=== PATIENT | male | born 1950 | race Caucasian/White ===

== ENCOUNTER 2016-04-04 06:49 | Outpatient (CLI) | payer OTHER ==
[2013-05-31 23:36] VITALS: BMI 24.1
[2016-04-04 07:23] LABS: CHOL/HDL RATIO 3.3 (4.5-6.4)
== END 2016-04-04 06:50 | disposition home or self-care (01) ==
LOC: LAB 06:49
PROVIDERS: ATTEND Internal Medicine Cardiovascular Disease
DX: I25.10 Atherosclerotic heart disease of native coronary artery without angina pectoris (principal); I10 Essential (primary) hypertension
CPT/HCPCS: 36415; 80061; 84450; 84460

== ENCOUNTER 2016-05-01 07:23 | Outpatient (CLI) ==
[2013-05-31 23:36] VITALS: BMI 24.1
== END 2016-05-01 07:24 | disposition home or self-care (01) ==
LOC: LAB 07:23
PROVIDERS: ATTEND Nurse Practitioner Family
DX: E10.42 Type 1 diabetes mellitus with diabetic polyneuropathy (principal)
CPT/HCPCS: 36415; 83036

== ENCOUNTER 2016-09-10 21:12 | Outpatient (CLI) ==
[2013-05-31 23:36] VITALS: BMI 24.1
== END 2016-09-10 21:13 | disposition home or self-care (01) ==
LOC: AMBL 21:12
PROVIDERS: ATTEND Internal Medicine Geriatric Medicine
DX: E11.649 Type 2 diabetes mellitus with hypoglycemia without coma (principal); Z79.4 Long term (current) use of insulin; R41.82 Altered mental status, unspecified; R40.2421 Glasgow coma scale score 9-12, in the field [EMT or ambulance]

== ENCOUNTER 2016-10-01 23:58 | Outpatient (CLI) | payer OTHER ==
[2013-05-31 23:36] VITALS: BMI 24.1
== END 2016-10-01 23:59 ==
LOC: AMBL 23:58
PROVIDERS: ATTEND Internal Medicine Geriatric Medicine
DX: R40.4 Transient alteration of awareness (principal); E16.2 Hypoglycemia, unspecified

== ENCOUNTER 2017-06-19 06:52 | Outpatient (CLI) | payer OTHER ==
[2013-05-31 23:36] VITALS: BMI 24.1
== END 2017-06-19 06:53 | disposition home or self-care (01) ==
LOC: LAB 06:52
PROVIDERS: ATTEND Nurse Practitioner
DX: E10.42 Type 1 diabetes mellitus with diabetic polyneuropathy (principal); I10 Essential (primary) hypertension; E78.2 Mixed hyperlipidemia; Z96.41 Presence of insulin pump (external) (internal)
CPT/HCPCS: 36415; 80053; 80061; 84439; 84443; 84480

== ENCOUNTER 2017-09-22 06:50 | Outpatient (CLI) ==
[2013-05-31 23:36] VITALS: BMI 24.1
== END 2017-09-22 06:51 | disposition home or self-care (01) ==
LOC: LAB 06:50
PROVIDERS: ATTEND Nurse Practitioner
DX: E10.42 Type 1 diabetes mellitus with diabetic polyneuropathy (principal)
CPT/HCPCS: 36415; 80053; 80061; 82607; 83036; 84439; 84443

== ENCOUNTER 2018-01-04 07:38 | Outpatient (CLI) | payer OTHER ==
[2013-05-31 23:36] VITALS: BMI 24.1
== END 2018-01-04 07:39 | disposition home or self-care (01) ==
LOC: LAB 07:38
PROVIDERS: ATTEND Internal Medicine Endocrinology, Diabetes & Metabolism
DX: E78.2 Mixed hyperlipidemia (principal); E10.42 Type 1 diabetes mellitus with diabetic polyneuropathy; E55.9 Vitamin D deficiency, unspecified
CPT/HCPCS: 36415; 80053; 80061; 82306; 82607; 83036; 84443

== ENCOUNTER 2018-04-05 06:38 | Outpatient (CLI) ==
[2013-05-31 23:36] VITALS: BMI 24.1
== END 2018-04-05 06:39 | disposition home or self-care (01) ==
LOC: LAB 06:38
PROVIDERS: ATTEND Physician Assistant Medical
DX: E10.42 Type 1 diabetes mellitus with diabetic polyneuropathy (principal); E78.2 Mixed hyperlipidemia
CPT/HCPCS: 36415; 80053; 80061; 82607; 83036

== ENCOUNTER 2018-07-03 06:40 | Outpatient (CLI) ==
[2013-05-31 23:36] VITALS: BMI 24.1
== END 2018-07-03 06:41 | disposition home or self-care (01) ==
LOC: LAB 06:40
PROVIDERS: ATTEND Physician Assistant Medical
DX: E10.42 Type 1 diabetes mellitus with diabetic polyneuropathy (principal); E78.2 Mixed hyperlipidemia
CPT/HCPCS: 36415; 80053; 80061; 82607; 83036

== ENCOUNTER 2018-08-04 12:05 | Outpatient (CLI) ==
[2013-05-31 23:36] VITALS: BMI 24.1
--- NOTE | 2018-08-09 12:21 | ECHOCOLOR ---
Date of Exam: 08/04/18 Ordering Physician: DEANDRE MACIAS APRN Reason for Echo: MITRAL REGURGITATION, CABG, SOB M-Mode Normal Adult Results LV Dimensions Normal Adult Results AoV Opening excursions >1.6 >1.6 LVEDD-base- 3.5-5.8 4.4 Ao root dimensions 2.0-3.7 3.0 LVESD-base- 3.1-4.6 L. Atrium dimensions 1.9-3.8 4.4 Post. Wall thickness 0.8-1.1 1.2 IV septum (thickness) 0.7-1.2 1.2 Post. Wall excursion 0.72-1.3 NORMAL Septal motion 0.7 Systolic motion R. Ventricular cavity 1.5-2.0 NORMAL LVEF 60% 64% Paradoxical septal wall motion NORMAL 2-D: 2-D M Mode Echocardiogram was performed using apical four chamber and left parasternal long and short axis views. Mitral, tricuspid and aortic valves appear to be normal. Contractility of the left ventricle seems to be normal, so is the cavity size. ENLARGED LEFT ATRIAL CAVITY. Aortic root appears to be normal. There is no pericardial effusion. There is no thrombus noted in the left ventricular or left aortic cavity. No mitral valve prolapse noted. DOPPLER WITH COLOR FLOW: MODERATE MITRAL REGURGITATION, MILD TO MODERATE TRICUSPID REGURGITATION AND PULMONARY REGURGITATION, NORMAL VALVULAR FLOW INDICES M-MODE: MV: NORMAL AV: NORMAL TV: NORMAL PV: CHAMBER SIZE: ENLARGED LEFT ATRIAL CAVITY WALL MOTION: NORMAL (MAYBE MILDLY HYPOKINETIC SEPTAL WALL) PERICARDIUM: NORMAL INTERPRETATION: 1. LEFT VENTRICULAR HYPERTROPHY WITH ENLARGED LEFT ATRIAL CAVITY 2. LEFT VENTRICULAR EJECTION FRACTION 64%--NORMAL 3. MODERATE MITRAL REGURGITATION 4. MILD TO MODERATE TRICUSPID REGURGITATION AND PULMONARY REGURGITATION MTDD
== END 2018-08-04 12:06 | disposition home or self-care (01) ==
LOC: CAR 12:05
PROVIDERS: ATTEND Clinical Nurse Specialist
DX: I34.0 Nonrheumatic mitral (valve) insufficiency (principal)

== ENCOUNTER 2018-08-05 09:33 | Emergency (ER) ==
[2018-08-05 09:40] VITALS: TEMP 97.1; BMI 2387.0
[2018-08-05] MEDS ORDERED: ANTIVERT PO STA (10:35)
--- NOTE | 2018-08-05 11:37 | CT ---
EXAM: CT BRAIN HISTORY: Dizziness TECHNIQUE: CT brain without intravenous contrast. 5-mm axial sections with Reformations. COMPARISON: 05/31/2013 FINDINGS: There is generalized atrophy. There is at least mild periventricular and deep white matter low atten uation which although nonspecific is suggestive of chronic microvascular ischemic change. These find ings are stable Brain otherwise is unremarkable without evidence of hemorrhage or large vessel distribution recent is chemic infarction. There is no suggestion of acute hydrocephalus or subdural fluid collection. No m ass or mass effect. Cranium has no acute finding. Mastoid processes are aerated. The visualized paranasal sinuses are clear. IMPRESSION: No acute intracranial process.
[2018-08-05 11:51] VITALS: BP 152/68
--- NOTE | 2018-08-05 11:58 | ED.PDOC ---
General ED Provider: Dr. SARA SANCHEZ Chief Complaint: Dizziness Stated Complaint: dizziness x 1 week postional no deficits no pain Time Seen by Physician: 09:45 Mode of Arrival: Walk-In Information Source: Patient Exam Limitations: No limitations Primary Care Provider: DENA DUONG Nursing and Triage Documentation Reviewed and Agree: Yes Does patient meet sepsis criteria?: No System Inflammatory Response Syndrome: Not Applicable Sepsis Protocol: For patient's 13 years and over: Temp is 96.8 and below OR 101 and greater Pulse >90 BPM Resp >20/minute Acutely Altered Mental Status Are patient's symptoms suggestive of a new infection, such as: -Pneumonia -Skin, Soft Tissue -Endocarditis -UTI -Bone, Joint Infection -Implantable Device -Acute Abdominal Infection -Wound Infection -Meningitis -Blood Stream Catheter Infection -Unknown Neurological Complaint Exam - Dizziness Complaint/Exam Last Known Well: 8 days ago Onset: Gradual Duration: see above Symptoms Are: Still present Timing: Intermittent Episodes Lasting: Minutes Initial Severity: Mild Current Severity: Mild Character: Reports: Dizzy Aggravating: Reports: Position change Alleviating: Reports: Rest Associated Signs and Symptoms: Denies: Nausea, Vomiting, Diaphoresis, Tinnitus, Chest pain, Short of air, Palpitations, Unsteady gait, GI blood loss, Visual changes, Decreased oral intake, Change in medication, Change in diet, OTC meds, Loss of balance Review of Systems - Review Of Systems Constitutional: Reports: No symptoms Eyes: Reports: No symptoms Ears, Nose, Mouth, Throat: Reports: No symptoms Respiratory: Reports: No symptoms Cardiac: Reports: No symptoms GI: Reports: No symptoms : Reports: No symptoms Musculoskeletal: Reports: No symptoms Skin: Reports: No symptoms Neurological: Reports: Other (DIZZY) Endocrine: Reports: No symptoms Hematologic/Lymphatic: Reports: No symptoms All Other Systems: Reviewed and Negative Past Medical History - Past Medical History Previously Healthy: Yes Endocrine: Reports: Dyslipidemia Cardiovascular: Reports: Hypertension Respiratory: Reports: None Hematological: Reports: None Gastrointestinal: Reports: None Genitourinary: Reports: None Neuro/Psych: Reports: None Musculoskeletal: Reports: None Cancer: Reports: None - Surgical History General Surgical History: Reports: None - Family History Family History: Reports: None - Social History Smoking Status: Never smoker Hx Substance Use: No Alcohol Screening: Occasionally Physical Exam - Physical Exam Appearance: Well-appearing, No pain distress, Well-nourished Eyes: MACIE, EOMI, Conjunctiva clear ENT: Ears normal, Nose normal, Oropharynx normal Respiratory: Airway patent, Breath sounds clear, Breath sounds equal, Respirations nonlabored Cardiovascular: RRR, Pulses normal, No rub, No murmur GI/: Soft, Nontender, No masses, Bowel sounds normal, No Organomegaly Musculoskeletal: Normal strength, ROM intact, No edema, No calf tenderness Skin: Warm, Dry, Normal color Neurological: Sensation intact, Motor intact, Reflexes intact, Cranial nerves intact, Alert, Oriented Psychiatric: Affect appropriate, Mood appropriate - NIH Stroke Scale 1a. Level of Consciousness: 0=Alert and keenly responsive 1b. Level of Consciousness Questions: 0=Answers correctly to two questions 2. Best Gaze: 0=Normal 3. Visual: 0=No visual loss 4. Facial Palsy: 0=Normal 5a. Motor Left Arm: 0=No drift,arm holds 90 degrees for 10 sec., leg 30 degrees for 5 sec. 5b. Motor Right Arm: 0=No drift,arm holds 90 degrees for 10 sec., leg 30 degrees for 5 sec. 6a. Motor Left Le=No drift,arm holds 90 degrees for 10 sec., leg 30 degrees for 5 sec. 6b. Motor Right Le=No drift,arm holds 90 degrees for 10 sec., leg 30 degrees for 5 sec. 7. Limb Ataxia: 0=Absent 8. Sensory: 0=Normal 9. Best Language: 0=No aphasia 10. Dysarthria: 0=Normal 11. Extincion and Inattention: 0=Normal Stroke Scale Total: 0 Interpretation - Radiology Interpretation Radiology Interpretation By: Radiologist Radiology Results: No acute changes Exam Interpreted: CT Scan Re-Evaluation - Re-Evaluation Time of Re-Evaluation: 11:58 Status: Improved Vital Signs Stable: Yes Pain Level: 0 not dizzy Appearance: NAD Lungs: Clear Skin: Warm and Dry Neuro: Alert and Oriented X3 CV: RRR Critical Care Note - Critical Care Note Total Time (mins): 0 Course - Course Hematology/Chemistry: 08/05/18 10:09 08/05/18 10:21 Orders, Labs, Meds: Lab Review 08/05/18 08/05/18 08/05/18 10:09 10:13 10:21 WBC 6.76 RBC 3.96 L Hgb 11.9 L Hct 35.9 L MCV 90.7 MCH 30.1 MCHC 33.1 RDW Coeff of [place] 14.4 Plt Count 243 Immature Gran % (Auto) 0.4 Neut % (Auto) 83.9 Lymph % (Auto) 9.2 L [place] % (Auto) 4.9 Eos % (Auto) 0.7 Baso % (Auto) 0.9 Immature Gran # (Auto) 0.0 Neut # (Auto) 5.7 Lymph # (Auto) 0.6 [place] # (Auto) 0.3 L Eos # (Auto) 0.1 Baso # (Auto) 0.1 Puncture Site Rrad O2 Saturation 95.0 ABG pH 7.383 ABG pCO2 38.2 ABG pO2 79.0 L ABG HCO3 22.8 ABG Total CO2 24 ABG Base Excess -2 Gio Test + FiO2 % 21.0 Sodium 138.7 Potassium 4.60 Chloride 102.1 Carbon Dioxide 27.3 Anion Gap 13.90 BUN 18.0 Creatinine 0.67 Estimated GFR (MDRD) 117.00 BUN/Creatinine Ratio 26.86 Glucose 271.0 H Calcium 9.12 Total Bilirubin 0.85 AST 40.3 ALT 18.7 Alkaline Phosphatase 123.3 H Total Creatine Kinase Troponin I Total Protein 6.70 Albumin 4.19 Globulin 2.51 Albumin/Globulin Ratio 1.66 Urine Color Urine Clarity Urine pH Ur Specific [place] Urine Protein Urine Glucose (UA) Urine Ketones Urine Blood Urine Nitrite Urine Bilirubin Urine Urobilinogen Ur Leukocyte Esterase 08/05/18 08/05/18 10:21 11:10 WBC RBC Hgb Hct MCV MCH MCHC RDW Coeff of [place] Plt Count Immature Gran % (Auto) Neut % (Auto) Lymph % (Auto) [place] % (Auto) Eos % (Auto) Baso % (Auto) Immature Gran # (Auto) Neut # (Auto) Lymph # (Auto) [place] # (Auto) Eos # (Auto) Baso # (Auto) Puncture Site O2 Saturation ABG pH ABG pCO2 ABG pO2 ABG HCO3 ABG Total CO2 ABG Base Excess Gio Test FiO2 % Sodium Potassium Chloride Carbon Dioxide Anion Gap BUN Creatinine Estimated GFR (MDRD) BUN/Creatinine Ratio Glucose Calcium Total Bilirubin AST ALT Alkaline Phosphatase Total Creatine Kinase 46.6 L Troponin I < 0.012 Total Protein Albumin Globulin Albumin/Globulin Ratio Urine Color Yellow Urine Clarity Clear Urine pH 6.0 Ur Specific [place] 1.015 Urine Protein Negative Urine Glucose (UA) 2+ Urine Ketones Trace Urine Blood Negative Urine Nitrite Negative Urine Bilirubin Negative Urine Urobilinogen 0.2 Ur Leukocyte Esterase Negative Orders Category Date Time Status ABG DRAW REQUEST Stat CARDIO 08/05/18 10:13 Completed EKG-(ED ONLY) Stat CARDIO 08/05/18 10:09 Completed ABG Stat LAB 08/05/18 10:13 Completed CBC W/ AUTO DIFF Stat LAB 08/05/18 10:09 Completed COMPREHENSIVE METABOLIC PANEL Stat LAB 08/05/18 10:21 Completed CREATINE KINASE Stat LAB 08/05/18 10:21 Completed TROPONIN I Stat LAB 08/05/18 10:21 Completed URINALYSIS C & S IF INDICATED Stat LAB 08/05/18 11:10 Completed Meclizine HCl [Antivert] MEDS 08/05/18 10:35 Discontinued 25 mg PO ONCE STA CT HEAD W/O CONTRAST Stat RADS 08/05/18 10:09 Taken Medications Discontinued Medications Generic Name Dose Route Start Last Admin Trade Name Freq PRN Reason Stop Dose Admin Meclizine HCl 25 mg 08/05/18 10:35 08/05/18 10:50 Antivert PO 08/05/18 10:36 25 mg ONCE STA Administration Vital Signs: Temp Pulse Resp BP Pulse Ox 08/05/18 11:50 152/68 H 08/05/18 09:34 97.1 F L 51 L 20 176/70 H 98 Departure - Departure Time of Disposition: 11:59 Disposition: HOME SELF-CARE Discharge Problem: Dizziness Anemia Qualifiers: Anemia type: unspecified type Qualified Code(s): D64.9 - Anemia, unspecified Instructions: Dizziness (ED), Lightheadedness (ED), Vertigo (DC) Condition: Good Pt referred to PMD for follow-up: Yes IPMP verified?: No Additional Instructions: Please call your Family Physician as soon as possible to schedule a follow-up appointment. your blood count is low . please discuss colonscopy with your MD Allergies/Adverse Reactions: Allergies No Known Allergies Allergy (Verified 08/05/18 09:38) Home Medications: Ambulatory Orders Atorvastatin Calcium [Lipitor] 10 mg PO BEDTIME 12/27/12 Nitroglycerin [Nitrostat] 0.4 mg SL Q5MIN X 3 DOSES PRN 12/27/12 Prasugrel HCl [Effient] 10 mg PO DAILY 10/21/13 Losartan Potassium [Cozaar] 50 mg PO BEDTIME 05/31/13 Nebivolol HCl [Bystolic] 10 mg PO DAILY 06/01/13
== END 2018-08-05 12:13 | disposition home or self-care (01) ==
LOC: ED 09:33
DX: R42 Dizziness and giddiness (principal); D64.9 Anemia, unspecified; E78.5 Hyperlipidemia, unspecified; I10 Essential (primary) hypertension; Z79.899 Other long term (current) drug therapy
CPT/HCPCS: 36415; 80053; 81001; 82550; 82803; 84484; 85025; 93005; 93010; 99283

== ENCOUNTER 2021-04-02 05:12 | Inpatient (IN) ==
[2021-04-02] MEDS ORDERED: DEXTROSE 50%-WATER ABBOJECT IVP ONE (05:20)
--- NOTE | 2021-04-02 05:24 | ED.PDOC ---
General <CHAITANYA CONTEH MD - Last Filed: 04/03/21 12:44> ED Provider: Dr. CHAITANYA CONTEH Chief Complaint: Hypoglycemia Stated Complaint: Insulin dependent diabetic, took his insulin last night, but did not eat. noticed that around 4 this morning she could not arouse him, snoring, family did not check blood sugar, instead loaded him in car and brought him here. He was here 2 days ago for altered mental status, work-up unremarkable, transferred to [facility], [place] for possible stroke, recovered, unknown findings, reports that after the fact she discovered that he had been taking her percocet and valium type medicines. No alcohol reported. When arrived here to ED, nurse found his BS to be 51. Tx initiated. Time Seen by Provider: 04/02/21 05:23 Mode of Arrival: Wheelchair Information Source: Family Exam Limitations: Clinical condition and Altered mental status Primary Care Provider: DENA DUONG Nursing and Triage Documentation Reviewed and Agree: Yes Does patient meet sepsis criteria?: No System Inflammatory Response Syndrome: Not Applicable Sepsis Protocol: For patient's 13 years and over: Temp is 96.8 and below OR 101 and greater Pulse >90 BPM Resp >20/minute Acutely Altered Mental Status Are patient's symptoms suggestive of a new infection, such as: -Pneumonia -Skin, Soft Tissue -Endocarditis -UTI -Bone, Joint Infection -Implantable Device -Acute Abdominal Infection -Wound Infection -Meningitis -Blood Stream Catheter Infection -Unknown Neurological Complaint Exam <CHAITANYA CONTEH MD - Last Filed: 04/03/21 12:44> Altered Mental Status Complaint/Exam Current Mental Status: Unresponsiveness Last Known Well: last evening at bedtime Onset: Gradual (unknown for certain) Duration: unknown exactly Symptoms Are: Still present Timing: Constant Initial Severity: Severe Current Severity: Severe Eye Deviation Present: Yes (nystagmus noted) Character: Reports Responsiveness (decreased) Aggravating: Reports Medication change (insulin taken without eating) Alleviating: Reports None Associated Signs and Symptoms: Denies Dizziness, Weakness, Headache, Fever, Illness, Nuchal rigidity, Seizure, Nausea, Vomiting, Recently depressed or Trauma Related History: Reports Similar episode (see recent ETR) Cardiac Risk Factors: Reports Hypertension and CAD CVA Risk Factors: Reports Diabetes, Hypertension and CAD Related Surgical History: Reports None Carotid Bruit Present: No Glascow Coma Scale (see protocol): 9 Nystagmus Present: Yes Gag Reflex Present: No Meningeal Signs Positive: No Focal Weakness: Present None (cannot assess due to reduced LOC) Focal Sensory Loss: Present None (cannot assess) Gait: Unable Babinski Sign: Positive Right and Positive Left Signs of Injury: Present Normal findings Thrombolytics Considered: No Differential Diagnoses: Hypoxia, Intoxication, Intracranial Bleed, Metabolic Disorder, Hypoglycemia, Overdose, Medication reaction and CVA Review of Systems <CHAITANYA CONTEH MD - Last Filed: 04/03/21 12:44> Review Of Systems Constitutional: Reports Other (cannot determine due to being obtunded) All Other Systems: Other (cannot be obtained due to reduced LOC) PFSH <CHAITANYA CONTEH MD - Last Filed: 04/03/21 12:44> Medical History (Updated 04/03/21 @ 20:58 by CHAITANYA CONTEH MD) Diabetes HTN (hypertension) Hyperlipidemia Rotator cuff arthropathy Social History Smoking and tobacco status: Never smoker Surgical History (Updated 04/02/21 @ 15:50 by AKIN TALLEY RN) H/O heart artery stent History of penile implant History of quadruple bypass Physical Exam <CHAITANYA CONTEH MD - Last Filed: 04/03/21 12:44> Physical Exam Appearance: Reports Thin Ill-appearing: Not Applicable Pain Distress: Not Applicable Eyes: Reports MACIE and Other (nystagmus type slow horizontal eye movements, no clear pattern) ENT: Reports Oropharynx normal Neck: Supple Respiratory: Reports Airway patent and Breath sounds clear Cardiovascular: Reports RRR and Pulses normal GI/: Reports Soft Musculoskeletal: Reports Not Examined Skin: Reports Warm and Dry Neurological: Reports Reflexes intact, Alert to pain (responds to pain by reaching to area of pain), Abnormal reflexes (Babinski positive) and Other (Positive Babinski test bilateral. No doll's eyes findings.) Psychiatric: Reports Not Examined <CHAITANYA CONTEH MD - Last Filed: 04/03/21 12:44> NIH Stroke Scale 1a. Level of Consciousness: 2=Not alert, requires repeated stimulation or painful stimulation 1b. Level of Consciousness Questions: 2=Answers correctly to neither 5a. Motor Left Arm: 4=No movement 5b. Motor Right Arm: 4=No movement 6a. Motor Left Le=No movement 6b. Motor Right Le=No movement 7. Limb Ataxia: 2=Present in two or more limbs 9. Best Language: 3=Mute, only sounds 10. Dysarthria: 2=Severe, cannot be understood 11. Extincion and Inattention: 2=Profound semi-inattention Stroke Scale Total: 29 <DENA CASANOVA DO - Last Filed: 04/04/21 07:25> NIH Stroke Scale Stroke Scale Total: 29 Interpretation <CHAITANYA CONTEH MD - Last Filed: 04/03/21 12:44> EKG Interpretation Time of EKG #1: 05:23 Rate: Normal Rhythm: Sinus Ectopy: None Lawn: NL ST Segment: Other (NSSTW changes) Interpretation: LVH, prolonged QT (442) <DENA CASANOVA DO - Last Filed: 04/04/21 07:25> Radiology Interpretation Exam Interpreted: Other (MRI Brain:No acute intracranial abnormality. Mild chronic microvascular ischemic white matter changes. Chronic lacunar infarct in the left lentiform nucleus and small chronic right cerebellar infarct.) Physician Notification <CHAITANYA CONTEH MD - Last Filed: 04/03/21 12:44> Case Discussed Physician Notified: Dr. Casanova turn over ED care. Will need glucose monitored, narcan/romaz. Time of Notification: 07:00 <DENA CASANOVA DO - Last Filed: 04/04/21 07:25> Case Discussed Physician Notified: Assumed mgt and care from Dr Conteh Time of Notification: 07:00 Comments: Patient wiht Altered LOC/Despite initial tx remains Somolent, Mininmal response to tactile stimulus; Urine Drug Screen Positive for Opiates and benzodiazes Hx similar scenario last ER visit and later revealed by family of suspicion patient had been using meds at home Critical Care Note <CHAITANYA CONTEH MD - Last Filed: 04/03/21 12:44> Critical Care Note Total Critical Care Time (mins): 60 Comments: Tx for severe hypoglycemia, altered mental status, test review, old record review. Course <CHAITANYA CONTEH MD - Last Filed: 04/03/21 12:44> Course Hematology/Chemistry: 04/04/21 04:50 04/04/21 04:50 Orders, Labs, Meds: Lab Review 04/02/21 04/02/21 04/02/21 05:45 05:45 05:50 WBC RBC Hgb Hct MCV MCH MCHC RDW Coeff of Bandar Plt Count Immature Gran % (Auto) Neut % (Auto) Lymph % (Auto) Harper % (Auto) Eos % (Auto) Baso % (Auto) Neut # (Auto) Lymph # (Auto) Harper # (Auto) Eos # (Auto) Baso # (Auto) Immature Gran # (Auto) Puncture Site Base Excess O2 Saturation ABG pH ABG pCO2 ABG pO2 ABG HCO3 ABG Total CO2 Gio Test Hemoglobin Oxyhemoglobin Carboxyhemoglobin Total Hemoglobin O2 Delivery Device Oxygen Liter Flow Sodium Potassium Chloride Carbon Dioxide Anion Gap BUN Creatinine Estimated GFR (MDRD) BUN/Creatinine Ratio Glucose Lactic Acid Calcium Total Bilirubin AST ALT Alkaline Phosphatase Troponin I Total Protein Albumin Globulin Albumin/Globulin Ratio Procalcitonin 0.25 H Urine Color Yellow Urine Clarity Clear Urine pH 6.5 Ur Specific [place] 1.020 Urine Protein Negative Urine Glucose (UA) 2+ H Urine Ketones Negative Urine Blood Negative Urine Nitrite Negative Urine Bilirubin Negative Urine Urobilinogen 0.2 Ur Leukocyte Esterase Negative Urine Opiates Screen Negative Ur Oxycodone Screen Positive H Urine Methadone Screen Negative Ur Propoxyphene Screen Negative Ur Barbiturates Screen Negative U Tricyclic Antidepress Negative Ur Phencyclidine Scrn Negative Ur Amphetamine Screen Negative U Methamphetamines Scrn Negative U Benzodiazepines Scrn Positive H Urine Cocaine Screen Negative U Cannabinoids Screen Negative SARS CoV-2 RNA Rapid KARRIE 04/02/21 04/02/21 04/02/21 05:53 05:53 05:55 WBC 17.81 H D RBC 3.64 L Hgb 12.0 L Hct 34.8 L MCV 95.6 H MCH 33.0 H MCHC 34.5 RDW Coeff of Bandar 13.5 Plt Count 251 Immature Gran % (Auto) 1.0 Neut % (Auto) 87.8 H Lymph % (Auto) 4.5 L Harper % (Auto) 6.5 Eos % (Auto) 0.0 Baso % (Auto) 0.2 Neut # (Auto) 15.6 H Lymph # (Auto) 0.8 Harper # (Auto) 1.2 Eos # (Auto) 0.0 Baso # (Auto) 0.0 Immature Gran # (Auto) 0.2 Puncture Site Base Excess O2 Saturation ABG pH ABG pCO2 ABG pO2 ABG HCO3 ABG Total CO2 Gio Test Hemoglobin Oxyhemoglobin Carboxyhemoglobin Total Hemoglobin O2 Delivery Device Oxygen Liter Flow Sodium 140.3 Potassium 3.25 L Chloride 107.0 Carbon Dioxide 26.9 Anion Gap 9.65 BUN 31.2 H Creatinine 0.68 Estimated GFR (MDRD) 115.00 BUN/Creatinine Ratio 45.88 Glucose 166.8 H Lactic Acid Calcium 8.75 Total Bilirubin 0.84 AST 56.1 ALT 84.1 H Alkaline Phosphatase 144.9 H D Troponin I 0.372 H Total Protein 5.98 L Albumin 3.58 Globulin 2.40 Albumin/Globulin Ratio 1.49 Procalcitonin Urine Color Urine Clarity Urine pH Ur Specific [place] Urine Protein Urine Glucose (UA) Urine Ketones Urine Blood Urine Nitrite Urine Bilirubin Urine Urobilinogen Ur Leukocyte Esterase Urine Opiates Screen Ur Oxycodone Screen Urine Methadone Screen Ur Propoxyphene Screen Ur Barbiturates Screen U Tricyclic Antidepress Ur Phencyclidine Scrn Ur Amphetamine Screen U Methamphetamines Scrn U Benzodiazepines Scrn Urine Cocaine Screen U Cannabinoids Screen SARS CoV-2 RNA Rapid KARRIE 04/02/21 04/02/21 04/02/21 07:25 08:22 09:32 WBC RBC Hgb Hct MCV MCH MCHC RDW Coeff of Bandar Plt Count Immature Gran % (Auto) Neut % (Auto) Lymph % (Auto) Harper % (Auto) Eos % (Auto) Baso % (Auto) Neut # (Auto) Lymph # (Auto) Harper # (Auto) Eos # (Auto) Baso # (Auto) Immature Gran # (Auto) Puncture Site Rrad Base Excess 2.7 O2 Saturation 97.0 ABG pH 7.41 ABG pCO2 43.0 ABG pO2 90.0 ABG HCO3 27.3 ABG Total CO2 28.6 H Gio Test Pos Hemoglobin 1.0 Oxyhemoglobin 95.4 Carboxyhemoglobin 1.2 Total Hemoglobin 11.8 O2 Delivery Device Cannula Oxygen Liter Flow 2.00 Sodium Potassium Chloride Carbon Dioxide Anion Gap BUN Creatinine Estimated GFR (MDRD) BUN/Creatinine Ratio Glucose Lactic Acid 3.05 H Calcium Total Bilirubin AST ALT Alkaline Phosphatase Troponin I Total Protein Albumin Globulin Albumin/Globulin Ratio Procalcitonin Urine Color Urine Clarity Urine pH Ur Specific [place] Urine Protein Urine Glucose (UA) Urine Ketones Urine Blood Urine Nitrite Urine Bilirubin Urine Urobilinogen Ur Leukocyte Esterase Urine Opiates Screen Ur Oxycodone Screen Urine Methadone Screen Ur Propoxyphene Screen Ur Barbiturates Screen U Tricyclic Antidepress Ur Phencyclidine Scrn Ur Amphetamine Screen U Methamphetamines Scrn U Benzodiazepines Scrn Urine Cocaine Screen U Cannabinoids Screen SARS CoV-2 RNA Rapid KARRIE Negative Orders Category Date Time Status ADMIT PATIENT INPATIENT .TO [facility] (MONITORED BED) ADMISSION 04/02/21 13:51 Active ABG DRAW REQUEST Stat CARDIO 04/02/21 09:25 Completed EKG-(ED ONLY) Stat CARDIO 04/02/21 05:36 Completed TELEMETRY MONITORING TELE CARE 04/02/21 13:53 Active ABG COOX Stat LAB 04/02/21 09:32 Completed BLOOD CULTURE (ED ONLY) Stat LAB 04/02/21 08:22 Results CBC W/ AUTO DIFF Stat LAB 04/02/21 05:53 Completed COMPREHENSIVE METABOLIC PANEL Stat LAB 04/02/21 05:53 Completed DRUG SCREEN, URINE, RAPID Stat LAB 04/02/21 05:45 Completed LACTIC ACID Stat LAB 04/02/21 08:22 Completed PROCALCITONIN Stat LAB 04/02/21 05:50 Completed URINALYSIS C & S IF INDICATED Stat LAB 04/02/21 05:45 Completed Ceftriaxone/D5w 1 gm Premix [Rocephin 1 gm/50 ml D5w] MEDS 04/02/21 08:05 Discontinued 1 gm in 50 ml IV ONCE Dextrose 5 %-Water [Dextrose 5%-Water IV Soln] 500 ml MEDS 04/02/21 06:02 Discontinued IV BOLUS Dextrose 50 % in Water [Dextrose 50%-Water Abboject] MEDS 04/02/21 05:20 Discontinued 50 ml IVP ONCE ONE Dextrose 50 % in Water [Dextrose 50%-Water Abboject] MEDS 04/02/21 07:41 Discontinued 50 ml IVP ONCE STA Flumazenil [Romazicon] MEDS 04/02/21 07:30 Discontinued 0.2 mg IVP ONCE ONE Naloxone HCl [Narcan] MEDS 04/02/21 07:08 Discontinued 0.4 mg .ROUTE .STK-MED ONE Naloxone HCl [Narcan] MEDS 04/02/21 07:11 Discontinued 0.4 mg IVP ONCE STA Piperacillin Sodium/Tazobactam [Zosyn 3.375 gm] 3.375 MEDS 04/02/21 13:50 Discontinued gm 0.9 % Sodium Chloride [Sodium Chloride] 50 ml IV ONCE Vitamin B-1 Inj [Thiamine] 100 mg MEDS 04/02/21 14:10 Discontinued 0.9 % Sodium Chloride [Sodium Chloride] [address] ABDOMEN/PELVIS WO CONTRAST Stat RADS 04/02/21 06:[address] CHEST W/O CONTRAST Stat RADS 04/02/21 07:[address] HEAD W/O CONTRAST Stat RADS 04/02/21 06:38 Completed MRI BRAIN W/O CONTRAST Stat RADS 04/02/21 09:56 Completed Medications Generic Name Dose Route Start Last Admin Trade Name Freq PRN Reason Stop Dose Admin Acetaminophen 650 mg 04/02/21 15:21 Acetaminophen 325 Mg Tablet PO Q4H PRN Temp >101 Albuterol/Ipratropium 3 ml 04/02/21 18:00 04/04/21 05:21 Ipratropium/Albuterol Vial.Neb NEB 3 ml RTQ6H AFSHAN Administration Enoxaparin Sodium 70 mg 04/03/21 09:00 04/03/21 20:44 Enoxaparin Sodium 100 Mg/Ml Syr SUBCUT 70 mg Q12HR AFSHAN Administration CEFTRIAXONE/D5W 1 GM PREMIX 1 gm in 50 mls @ 75 mls/hr 04/03/21 21:00 04/03/21 20:44 Rocephin 1 Gm/50 Ml D5w IV 04/05/21 20:59 75 mls/hr BEDTIME AFSHAN Administration Potassium Chloride/Sodium Chloride 1,000 mls @ 100 mls/hr 04/03/21 10:44 04/04/21 01:29 Sodium Chloride 0.9%-Kcl 20 Meq IV 100 mls/hr .Q10H AFSHAN Administration Insulin Human Regular 0 unit 04/02/21 20:43 04/04/21 06:48 Insulin Regular, Human 100 Unit/Ml (3ml) Vial SUBCUT 8 unit PRN PRN Administration Hyperglycemia Protocol Labetalol HCl 20 mg 04/03/21 10:45 Labetalol Hcl 20 Mg/4 Ml Disp.Syrin IVP Q2H PRN SBP GREATER THAN 180 Pantoprazole Sodium 40 mg 04/04/21 09:00 Pantoprazole Sodium 40 Mg Vial IVP DAILY AFSHAN Discontinued Medications Generic Name Dose Route Start Last Admin Trade Name Freq PRN Reason Stop Dose Admin Dextrose 50 ml 04/02/21 05:20 04/02/21 05:21 Dextrose 50 % In Water 50 Ml Disp.Syrin IVP 04/02/21 05:21 50 ml ONCE ONE Administration Dextrose 50 ml 04/02/21 07:41 04/02/21 07:43 Dextrose 50 % In Water 50 Ml Disp.Syrin IVP 04/02/21 07:42 50 ml ONCE STA Administration Flumazenil 0.2 mg 04/02/21 07:30 04/02/21 07:37 Flumazenil 0.1 Mg/1 Ml Mdv IVP 04/02/21 07:31 0.2 mg ONCE ONE Administration Dextrose 500 mls @ 500 mls/hr 04/02/21 06:02 04/02/21 06:03 Dextrose 5%-Water Iv Soln IV 04/02/21 07:01 500 mls/hr BOLUS STA Administration CEFTRIAXONE/D5W 1 GM PREMIX 1 gm in 50 mls @ 75 mls/hr 04/02/21 08:05 04/02/21 09:04 Rocephin 1 Gm/50 Ml D5w IV 04/02/21 08:44 75 mls/hr ONCE STA Administration Piperacillin Sod/Tazobactam 50 mls @ 50 mls/hr 04/02/21 13:50 04/02/21 14:03 Sod 3.375 gm/ Sodium Chloride IV 04/02/21 14:49 50 mls/hr ONCE STA Administration Thiamine HCl 100 mg/ Sodium 51 mls @ 100 mls/hr 04/02/21 14:10 04/02/21 14:45 Chloride IV 04/02/21 14:40 100 mls/hr ONCE STA Administration Dextrose/Sodium Chloride 1,000 mls @ 125 mls/hr 04/02/21 10:30 04/03/21 02:32 Dextrose 5%-1/2ns Iv Solution IV Not Given .Q8H AFSHAN Potassium Chloride/Dextrose/Sod Cl 1,000 mls @ 75 mls/hr 04/02/21 15:30 04/03/21 07:27 D5%-Ns-Kcl 20 Meq/L Iv Karen IV Not Given .[id number] AFSHAN CEFTRIAXONE/D5W 1 GM PREMIX 1 gm in 50 mls @ 75 mls/hr 04/02/21 21:00 04/02/21 21:03 Rocephin 1 Gm/50 Ml D5w IV 04/09/21 20:59 75 mls/hr DAILY AFSHAN Administration Potassium Chloride/Sodium Chloride 1,000 mls @ 150 mls/hr 04/02/21 22:00 04/03/21 05:38 Sodium Chloride 0.9%-Kcl 20 Meq IV 150 mls/hr .Q6H40M AFSHAN Administration Naloxone HCl 0.4 mg 04/02/21 07:11 04/02/21 07:12 Naloxone Hcl 0.4 Mg/Ml Vial IVP 04/02/21 07:12 0.4 mg ONCE STA Administration Vital Signs: Temp Pulse Resp BP Pulse Ox 04/02/21 06:15 92 H 22 154/61 H 98 04/02/21 05:40 82 18 132/66 98 04/02/21 05:13 96.3 F L 59 L 13 136/62 98 <DENA CASANOVA, DO - Last Filed: 04/04/21 07:25> Course Orders, Labs, Meds: Lab Review 04/02/21 04/02/21 04/02/21 05:45 05:45 05:50 WBC RBC Hgb Hct MCV MCH MCHC RDW Coeff of Bandar Plt Count Immature Gran % (Auto) Neut % (Auto) Lymph % (Auto) Harper % (Auto) Eos % (Auto) Baso % (Auto) Neut # (Auto) Lymph # (Auto) Harper # (Auto) Eos # (Auto) Baso # (Auto) Immature Gran # (Auto) Puncture Site Base Excess O2 Saturation ABG pH ABG pCO2 ABG pO2 ABG HCO3 ABG Total CO2 Gio Test Hemoglobin Oxyhemoglobin Carboxyhemoglobin Total Hemoglobin O2 Delivery Device Oxygen Liter Flow Sodium Potassium Chloride Carbon Dioxide Anion Gap BUN Creatinine Estimated GFR (MDRD) BUN/Creatinine Ratio Glucose Lactic Acid Calcium Total Bilirubin AST ALT Alkaline Phosphatase Troponin I Total Protein Albumin Globulin Albumin/Globulin Ratio Procalcitonin 0.25 H Urine Color Yellow Urine Clarity Clear Urine pH 6.5 Ur Specific [place] 1.020 Urine Protein Negative Urine Glucose (UA) 2+ H Urine Ketones Negative Urine Blood Negative Urine Nitrite Negative Urine Bilirubin Negative Urine Urobilinogen 0.2 Ur Leukocyte Esterase Negative Urine Opiates Screen Negative Ur Oxycodone Screen Positive H Urine Methadone Screen Negative Ur Propoxyphene Screen Negative Ur Barbiturates Screen Negative U Tricyclic Antidepress Negative Ur Phencyclidine Scrn Negative Ur Amphetamine Screen Negative U Methamphetamines Scrn Negative U Benzodiazepines Scrn Positive H Urine Cocaine Screen Negative U Cannabinoids Screen Negative SARS CoV-2 RNA Rapid KARRIE 04/02/21 04/02/21 04/02/21 05:53 05:53 05:55 WBC 17.81 H D RBC 3.64 L Hgb 12.0 L Hct 34.8 L MCV 95.6 H MCH 33.0 H MCHC 34.5 RDW Coeff of [place]ar 13.5 Plt Count 251 Immature Gran % (Auto) 1.0 Neut % (Auto) 87.8 H Lymph % (Auto) 4.5 L Harper % (Auto) 6.5 Eos % (Auto) 0.0 Baso % (Auto) 0.2 Neut # (Auto) 15.6 H Lymph # (Auto) 0.8 Harper # (Auto) 1.2 Eos # (Auto) 0.0 Baso # (Auto) 0.0 Immature Gran # (Auto) 0.2 Puncture Site Base Excess O2 Saturation ABG pH ABG pCO2 ABG pO2 ABG HCO3 ABG Total CO2 Gio Test Hemoglobin Oxyhemoglobin Carboxyhemoglobin Total Hemoglobin O2 Delivery Device Oxygen Liter Flow Sodium 140.3 Potassium 3.25 L Chloride 107.0 Carbon Dioxide 26.9 Anion Gap 9.65 BUN 31.2 H Creatinine 0.68 Estimated GFR (MDRD) 115.00 BUN/Creatinine Ratio 45.88 Glucose 166.8 H Lactic Acid Calcium 8.75 Total Bilirubin 0.84 AST 56.1 ALT 84.1 H Alkaline Phosphatase 144.9 H D Troponin I 0.372 H Total Protein 5.98 L Albumin 3.58 Globulin 2.40 Albumin/Globulin Ratio 1.49 Procalcitonin Urine Color Urine Clarity Urine pH Ur Specific [place] Urine Protein Urine Glucose (UA) Urine Ketones Urine Blood Urine Nitrite Urine Bilirubin Urine Urobilinogen Ur Leukocyte Esterase Urine Opiates Screen Ur Oxycodone Screen Urine Methadone Screen Ur Propoxyphene Screen Ur Barbiturates Screen U Tricyclic Antidepress Ur Phencyclidine Scrn Ur Amphetamine Screen U Methamphetamines Scrn U Benzodiazepines Scrn Urine Cocaine Screen U Cannabinoids Screen SARS CoV-2 RNA Rapid KARRIE 04/02/21 04/02/21 04/02/21 07:25 08:22 09:32 WBC RBC Hgb Hct MCV MCH MCHC RDW Coeff of [place] Plt Count Immature Gran % (Auto) Neut % (Auto) Lymph % (Auto) Harper % (Auto) Eos % (Auto) Baso % (Auto) Neut # (Auto) Lymph # (Auto) Harper # (Auto) Eos # (Auto) Baso # (Auto) Immature Gran # (Auto) Puncture Site Rrad Base Excess 2.7 O2 Saturation 97.0 ABG pH 7.41 ABG pCO2 43.0 ABG pO2 90.0 ABG HCO3 27.3 ABG Total CO2 28.6 H Gio Test Pos Hemoglobin 1.0 Oxyhemoglobin 95.4 Carboxyhemoglobin 1.2 Total Hemoglobin 11.8 O2 Delivery Device Cannula Oxygen Liter Flow 2.00 Sodium Potassium Chloride Carbon Dioxide Anion Gap BUN Creatinine Estimated GFR (MDRD) BUN/Creatinine Ratio Glucose Lactic Acid 3.05 H Calcium Total Bilirubin AST ALT Alkaline Phosphatase Troponin I Total Protein Albumin Globulin Albumin/Globulin Ratio Procalcitonin Urine Color Urine Clarity Urine pH Ur Specific [place] Urine Protein Urine Glucose (UA) Urine Ketones Urine Blood Urine Nitrite Urine Bilirubin Urine Urobilinogen Ur Leukocyte Esterase Urine Opiates Screen Ur Oxycodone Screen Urine Methadone Screen Ur Propoxyphene Screen Ur Barbiturates Screen U Tricyclic Antidepress Ur Phencyclidine Scrn Ur Amphetamine Screen U Methamphetamines Scrn U Benzodiazepines Scrn Urine Cocaine Screen U Cannabinoids Screen SARS CoV-2 RNA Rapid KARRIE Negative Orders Category Date Time Status ADMIT PATIENT INPATIENT .TO [facility] (MONITORED BED) ADMISSION 04/02/21 13:51 Active ABG DRAW REQUEST Stat CARDIO 04/02/21 09:25 Completed EKG-(ED ONLY) Stat CARDIO 04/02/21 05:36 Completed TELEMETRY MONITORING TELE CARE 04/02/21 13:53 Active ABG COOX Stat LAB 04/02/21 09:32 Completed BLOOD CULTURE (ED ONLY) Stat LAB 04/02/21 08:22 Results CBC W/ AUTO DIFF Stat LAB 04/02/21 05:53 Completed COMPREHENSIVE METABOLIC PANEL Stat LAB 04/02/21 05:53 Completed DRUG SCREEN, URINE, RAPID Stat LAB 04/02/21 05:45 Completed LACTIC ACID Stat LAB 04/02/21 08:22 Completed PROCALCITONIN Stat LAB 04/02/21 05:50 Completed URINALYSIS C & S IF INDICATED Stat LAB 04/02/21 05:45 Completed Ceftriaxone/D5w 1 gm Premix [Rocephin 1 gm/50 ml D5w] MEDS 04/02/21 08:05 Discontinued 1 gm in 50 ml IV ONCE Dextrose 5 %-Water [Dextrose 5%-Water IV Soln] 500 ml MEDS 04/02/21 06:02 Discontinued IV BOLUS Dextrose 50 % in Water [Dextrose 50%-Water Abboject] MEDS 04/02/21 05:20 Discontinued 50 ml IVP ONCE ONE Dextrose 50 % in Water [Dextrose 50%-Water Abboject] MEDS 04/02/21 07:41 Discontinued 50 ml IVP ONCE STA Flumazenil [Romazicon] MEDS 04/02/21 07:30 Discontinued 0.2 mg IVP ONCE ONE Naloxone HCl [Narcan] MEDS 04/02/21 07:08 Discontinued 0.4 mg .ROUTE .STK-MED ONE Naloxone HCl [Narcan] MEDS 04/02/21 07:11 Discontinued 0.4 mg IVP ONCE STA Piperacillin Sodium/Tazobactam [Zosyn 3.375 gm] 3.375 MEDS 04/02/21 13:50 Discontinued gm 0.9 % Sodium Chloride [Sodium Chloride] 50 ml IV ONCE Vitamin B-1 Inj [Thiamine] 100 mg MEDS 04/02/21 14:10 Discontinued 0.9 % Sodium Chloride [Sodium Chloride] [address] ABDOMEN/PELVIS WO CONTRAST Stat RADS 04/02/21 06:[address] CHEST W/O CONTRAST Stat RADS 04/02/21 07:[address] HEAD W/O CONTRAST Stat RADS 04/02/21 06:38 Completed MRI BRAIN W/O CONTRAST Stat RADS 04/02/21 09:56 Completed Medications Generic Name Dose Route Start Last Admin Trade Name Freq PRN Reason Stop Dose Admin Acetaminophen 650 mg 04/02/21 15:21 Acetaminophen 325 Mg Tablet PO Q4H PRN Temp >101 Albuterol/Ipratropium 3 ml 04/02/21 18:00 04/04/21 05:21 Ipratropium/Albuterol Vial.Neb NEB 3 ml RTQ6H AFSHAN Administration Enoxaparin Sodium 70 mg 04/03/21 09:00 04/03/21 20:44 Enoxaparin Sodium 100 Mg/Ml Syr SUBCUT 70 mg Q12HR AFSHAN Administration CEFTRIAXONE/D5W 1 GM PREMIX 1 gm in 50 mls @ 75 mls/hr 04/03/21 21:00 04/03/21 20:44 Rocephin 1 Gm/50 Ml D5w IV 04/05/21 20:59 75 mls/hr BEDTIME AFSHAN Administration Potassium Chloride/Sodium Chloride 1,000 mls @ 100 mls/hr 04/03/21 10:44 04/04/21 01:29 Sodium Chloride 0.9%-Kcl 20 Meq IV 100 mls/hr .Q10H AFSHAN Administration Insulin Human Regular 0 unit 04/02/21 20:43 04/04/21 06:48 Insulin Regular, Human 100 Unit/Ml (3ml) Vial SUBCUT 8 unit PRN PRN Administration Hyperglycemia Protocol Labetalol HCl 20 mg 04/03/21 10:45 Labetalol Hcl 20 Mg/4 Ml Disp.Syrin IVP Q2H PRN SBP GREATER THAN 180 Pantoprazole Sodium 40 mg 04/04/21 09:00 Pantoprazole Sodium 40 Mg Vial IVP DAILY AFSHAN Discontinued Medications Generic Name Dose Route Start Last Admin Trade Name Freq PRN Reason Stop Dose Admin Dextrose 50 ml 04/02/21 05:20 04/02/21 05:21 Dextrose 50 % In Water 50 Ml Disp.Syrin IVP 04/02/21 05:21 50 ml ONCE ONE Administration Dextrose 50 ml 04/02/21 07:41 04/02/21 07:43 Dextrose 50 % In Water 50 Ml Disp.Syrin IVP 04/02/21 07:42 50 ml ONCE STA Administration Flumazenil 0.2 mg 04/02/21 07:30 04/02/21 07:37 Flumazenil 0.1 Mg/1 Ml Mdv IVP 04/02/21 07:31 0.2 mg ONCE ONE Administration Dextrose 500 mls @ 500 mls/hr 04/02/21 06:02 04/02/21 06:03 Dextrose 5%-Water Iv Soln IV 04/02/21 07:01 500 mls/hr BOLUS STA Administration CEFTRIAXONE/D5W 1 GM PREMIX 1 gm in 50 mls @ 75 mls/hr 04/02/21 08:05 04/02/21 09:04 Rocephin 1 Gm/50 Ml D5w IV 04/02/21 08:44 75 mls/hr ONCE STA Administration Piperacillin Sod/Tazobactam 50 mls @ 50 mls/hr 04/02/21 13:50 04/02/21 14:03 Sod 3.375 gm/ Sodium Chloride IV 04/02/21 14:49 50 mls/hr ONCE STA Administration Thiamine HCl 100 mg/ Sodium 51 mls @ 100 mls/hr 04/02/21 14:10 04/02/21 14:45 Chloride IV 04/02/21 14:40 100 mls/hr ONCE STA Administration Dextrose/Sodium Chloride 1,000 mls @ 125 mls/hr 04/02/21 10:30 04/03/21 02:32 Dextrose 5%-1/2ns Iv Solution IV Not Given .Q8H AFSHAN Potassium Chloride/Dextrose/Sod Cl 1,000 mls @ 75 mls/hr 04/02/21 15:30 04/03/21 07:27 D5%-Ns-Kcl 20 Meq/L Iv Karen IV Not Given .[id number] AFSHAN CEFTRIAXONE/D5W 1 GM PREMIX 1 gm in 50 mls @ 75 mls/hr 04/02/21 21:00 04/02/21 21:03 Rocephin 1 Gm/50 Ml D5w IV 04/09/21 20:59 75 mls/hr DAILY AFSHAN Administration Potassium Chloride/Sodium Chloride 1,000 mls @ 150 mls/hr 04/02/21 22:00 04/03/21 05:38 Sodium Chloride 0.9%-Kcl 20 Meq IV 150 mls/hr .Q6H40M AFSHAN Administration Naloxone HCl 0.4 mg 04/02/21 07:11 04/02/21 07:12 Naloxone Hcl 0.4 Mg/Ml Vial IVP 04/02/21 07:12 0.4 mg ONCE STA Administration Vital Signs: Temp Pulse Resp BP Pulse Ox 04/02/21 06:15 92 H 22 154/61 H 98 04/02/21 05:40 82 18 132/66 98 04/02/21 05:13 96.3 F L 59 L 13 136/62 98 Discharge Plan Discharge Patient Disposition: ADMITTED INPATIENT Discharge Problem: Hypoglycemia, Acute alteration in mental status ED Provider: DEAN CASANOVA Condition: Serious <CHAITANYA CONTEH MD - Last Filed: 04/03/21 12:44> Physician Progress Note: [] <DENA CASANOVA, DO - Last Filed: 04/04/21 07:25> Physician Progress Note: No favorable response to IV Narcan or Romazecon again advised she awakened approximately 4:00 AM and heard loud sonorous breathing. NO RESPONSE TO SHAKING HIM. BS reading "low". She stated he was insistent on taking his INSULIN LAST Night at BED TIME Not sure of the amount. HS snack. He was adamant about keeping his Glucose levels controlled. Stated she Called her son in law who assisted with bringing him to ER Explained to her suspected nature of his current condition and preference of transfer to a facility for Neuro Service available however staff has called 19 different hospitals that all have lack of beds or staffing issues. PCP contacted by RN and advised to admit here at [facility] under Hospitalist service. Staff will check with hospitals again tomorrow. CODE STATUS- : CPR but not intubation or mechanical ventilation .
[2021-04-02 05:58] LABS: BASOPHILS % (AUTO) 0.2 % (0.0-3.0); HEMATOCRIT 34.8 % (42.0-52.0); IMMATURE GRANULOCYTE # (AUTO) 0.2 (0.0-1.0); LYMPHOCYTES # (AUTO) 0.8 K/uL (0.60-3.4); LYMPHOCYTES % (AUTO) 4.5 (10.0-50.0); MEAN CORPUSCULAR HGB CONC 34.5 (31.8-35.4); MEAN CORPUSCULAR VOLUME 95.6 fl (80.0-94.0); MONOCYTES # (AUTO) 1.2 K/uL (0.4-2.0); MONOCYTES % (AUTO) 6.5 (0-10); NEUTROPHILS # (AUTO) 15.6 K/ul (2.0-6.9); NEUTROPHILS % (AUTO) 87.8 % (42.2-75.2); PLATELET COUNT 251 10^3/uL (140-440); RDW COEFFICIENT OF VARIATION 13.5 % (11.6-14.8); RED BLOOD COUNT 3.64 10^6/ul (4.70-6.10); WHITE BLOOD COUNT 17.81 K/ul (4.2-10.2)
[2021-04-02 06:02] LABS: BILIRUBIN,URINE Negative (NEGATIVE); CLARITY,URINE Clear (CLEAR); COLOR,URINE Yellow (YELLOW); GLUCOSE, URINE (UA) 2+ (NEGATIVE); KETONES,URINE Negative (NEGATIVE); LEUKOCYTE ESTERASE ,URINE Negative (NEGATIVE); NITRITE,URINE Negative (NEGATIVE); PH,URINE 6.5 (5-9); PROTEIN,URINE Negative (NEGATIVE); URINE, BLOOD Negative (NEGATIVE); UROBILINOGEN,URINE 0.2 (0.2)
[2021-04-02] MEDS ORDERED: DEXTROSE 5%-WATER IV SOLN 500 ML IV STA (06:02)
[2021-04-02 06:12] LABS: ALANINE AMINOTRANSFERASE 84.1 U/L (0-50); ALBUMIN 3.58 g/dL (3.5-5.0); ALKALINE PHOSPHATASE 144.9 U/L (56-119); ASPARTATE AMINO TRANSFERASE 56.1 U/L (17-59); BILIRUBIN,TOTAL 0.84 mg/dL (0.2-1.3); BLOOD UREA NITROGEN 31.2 mg/dL (9-20); CALCIUM 8.75 mg/dL (8.4-10.2); CARBON DIOXIDE 26.9 mmol/L (22-30.0); CREATININE 0.68 mg/dL (0.60-1.10); GLUCOSE 166.8 mg/dL (74-106); POTASSIUM 3.25 mmol/L (3.5-5.1); SODIUM 140.3 mmol/L (134.5-145); TOTAL PROTEIN 5.98 g/dL (6.3-8.2)
[2021-04-02 06:12] LABS: AMPHETAMINE SCREEN,URINE NEGATIVE (NEGATIVE); BARBITURATE SCREEN,URINE NEGATIVE (NEGATIVE); BENZODIAZEPINES SCREEN,URINE POSITIVE (NEGATIVE); CANNABINOID SCREEN,URINE NEGATIVE (NEGATIVE); COCAIN SCREEN,URINE NEGATIVE (NEGATIVE); METHADONE URINE SCREEN NEGATIVE (NEGATIVE); METHAMPHETAMINES SCREEN,URINE NEGATIVE (NEGATIVE); OPIATE SCREEN,URINE NEGATIVE (NEGATIVE); OXYCODONE URINE SCREEN POSITIVE (NEGATIVE); PHENCYCLIDINE SCREEN,URINE NEGATIVE (NEGATIVE); PROPOXYPHENE URINE SCREEN NEGATIVE (NEGATIVE); TRICYCLIC ANTIDEPRESSANTS URIN NEGATIVE (NEGATIVE)
[2021-04-02] MEDS ORDERED: NARCAN ONE (07:08)
[2021-04-02] MEDS ORDERED: NARCAN IVP STA (07:11)
--- NOTE | 2021-04-02 07:17 | CT ---
EXAM: Brain CT without contrast 04/02/2021 INDICATION: Altered mental status. COMPARISON: CT head 03/31/2021. TECHNIQUE: Unenhanced CT of the head was performed from the skull base to the vertex. FINDINGS: No intracranial hemorrhage or extra-axial collection. No mass, mass effect or midline shift. The pruitt -white matter differentiation is preserved. Mild cerebral volume loss. There are patchy subcortical and periventricular white matter hypodensities, most commonly seen in chronic white matter microvascu lar ischemic changes. The ventricles are normal in size for age. The basal cisterns are patent. Th e visualized paranasal sinuses and mastoid air cells are clear. The orbits are unremarkable. The vi sualized osseous structures are unremarkable. IMPRESSION: - No acute intracranial hemorrhage or mass effect allowing for slight limitation by motion artifact. - Senescent changes. All CT scans are performed using dose optimization techniques as appropriate to the performed exam an d include at least one of the following: Automated exposure control, adjustment of the mA and/or kV according t o size, and the use of iterative reconstruction technique.
--- NOTE | 2021-04-02 07:19 | CT ---
EXAM: CT chest, abdomen pelvis without intravenous contrast 04/02/2021. Sagittal and coronal reform atted images obtained HISTORY: Shortness of a air. Unresponsive. Pain COMPARISON: 03/31/2021, 09/14/2020 FINDINGS: The heart size appears within normal limits. There is no pericardial effusion. Anatomic detail partially degraded by motion. Linear and ground-glass infiltrate within the dependent aspect of both lungs. This may represent atelectasis and/or pneumonitis. No pulmonary consolidation. No pleural effusion. No pneumothorax. Anatomic detail within the abdomen and pelvis is limited due to lack of intravenous contrast in [facility] with motion artifact. The liver shows no acute abnormality. Gallbladder not well visualized. The adrenal glands and kidneys show no acute abnormality. There is no hydronephrosis. The spleen and pancreas show no acute abnormality. There is no bowel obstruction. No evidence of ap pendicitis. Unremarkable urinary bladder. Penile implant in place. No free air. No free fluid. IMPRESSION: 1. Limited examination due to lack of intravenous contrast in combination with motion artifact. 2. Bilateral dependent atelectasis and/or pneumonitis. No pulmonary consolidation, effusion or pneu mothorax. 3. No urinary or bowel obstruction. 4. Gallbladder not well visualized. 5. No acute inflammatory process identified within the abdomen or pelvis. 6. Penile implant place. All CT scans are performed using dose optimization techniques as appropriate to the performed exam an d include at least one of the following: Automated exposure control, adjustment of the mA and/or kV according t o size, and the use of iterative reconstruction technique.
[2021-04-02] MEDS ORDERED: ROMAZICON IVP ONE (07:30)
[2021-04-02] MEDS ORDERED: DEXTROSE 50%-WATER ABBOJECT IVP STA (07:41)
[2021-04-02] MEDS ORDERED: ROCEPHIN 1 GM/50 ML D5W 1 GM/50 ML BAG IV STA (08:05)
[2021-04-02 09:40] LABS: ABG O2 HGB 95.4 % (95-100); ABG PH 7.41 (7.35-7.45); BEecf 2.7 (-2.0-3.0); COHb 1.2 (0.5-1.5); HCO3 27.3 (21-28); TCO2 28.6 (19-24); tHb 11.8 g/dl (11.7-17.4)
[2021-04-02] MEDS: DEXTROSE 5%-1/2NS IV SOLUTION 1,000 ML IV SCH (10:30)
--- NOTE | 2021-04-02 13:29 | MRI ---
EXAMINATION: MAGNETIC RESONANCE IMAGING (MRI) OF THE BRAIN WITHOUT CONTRAST HISTORY: Altered mental status. TECHNIQUE: Multiplanar multi-weighted MRI of the brain and brainstem was performed without intravenou s contrast using the general brain protocol. Contrast: None. COMPARISON: CT head 04/02/2021 FINDINGS: Parenchyma: No acute infarct. No acute hemorrhage. No mass effect or midline shift. Craniocervical junction is normal. Chronic Change: Scattered foci of T2/FLAIR hyperintensity in the periventricular and subcortical whit e matter, which are nonspecific, however likely represent mild chronic microvascular ischemia. No re mote microhemorrhages. Mild to moderate generalized brain volume loss. Small chronic right cerebell ar infarct and chronic lacunar infarct in the left lentiform nucleus. Ventricles/Extra-axial Spaces: Ventricles are normal in size and morphology for age. Normal basal ci sterns. Sella/Skull Base: Pituitary and sella are normal on noncontrast exam. Paranasal Sinuses/Mastoids: Mild mucosal thickening of the bilateral ethmoid and maxillary sinuses. Mastoid air cells are clear. Orbits: Normal. Vasculature: Normal flow voids in the carotid arteries and basilar artery. Calvarium/Scalp: Normal marrow. No soft tissue swelling. Limited Cervical Spine: Degenerative changes of the atlanto-axial joint. IMPRESSION: No acute intracranial abnormality. Mild chronic microvascular ischemic white matter changes. Chronic lacunar infarct in the left lentif orm nucleus and small chronic right cerebellar infarct.
[2021-04-02] MEDS ORDERED: ZOSYN 3.375 GM 3.375 GM in SODIUM CHLORIDE 50 ML IV STA (13:50)
[2021-04-02] MEDS ORDERED: THIAMINE 100 MG in SODIUM CHLORIDE 50 ML IV STA (14:10)
[2021-04-02] MEDS ORDERED: THIAMINE ONE (14:41)
[2021-04-02] MEDS ORDERED: TYLENOL PO PRN (15:21)
[2021-04-02 15:46] VITALS: BMI 21.0
[2021-04-02] MEDS ORDERED: ROCEPHIN 1 GM/50 ML D5W 1 GM/50 ML BAG IV SCH (21:00)
[2021-04-02] MEDS: HUMULIN R SUBCUT PRN (21:02)
[2021-04-02] MEDS: D5%-NS-KCL 20 MEQ/L IV SOL 1,000 ML IV SCH (21:08)
--- NOTE | 2021-04-02 21:14 | DI ---
EXAM: Chest, one-view HISTORY: Cough FINDINGS: Cardiac and mediastinal contours are normal. Pulmonary vasculature is normal. Lungs are clear. Prior mediastinotomy. No acute chest wall abnormality. IMPRESSION: No acute cardiopulmonary disease
[2021-04-02] MEDS: SODIUM CHLORIDE 0.9%-KCL 20 MEQ 1,000 ML IV SCH (22:20)
[2021-04-03] MEDS: DEXTROSE 5%-1/2NS IV SOLUTION 1,000 ML IV SCH (02:32)
[2021-04-03 05:38] LABS: BASOPHILS # (AUTO) 0.1 K/uL (0-0.2); BASOPHILS % (AUTO) 0.3 % (0.0-3.0); EOSINOPHILS # (AUTO) 0.1 K/ul (0.0-0.7); EOSINOPHILS % (AUTO) 0.6 % (0.0-7.0); HEMATOCRIT 36.9 % (42.0-52.0); IMMATURE GRANULOCYTE # (AUTO) 0.1 (0.0-1.0); IMMATURE GRANULOCYTE % (AUTO) 0.5 % (0.0-5.0); LYMPHOCYTES % (AUTO) 6.5 (10.0-50.0); MEAN CORPUSCULAR HGB CONC 35.2 (31.8-35.4); MEAN CORPUSCULAR VOLUME 93.7 fl (80.0-94.0); MONOCYTES # (AUTO) 1.2 K/uL (0.4-2.0); MONOCYTES % (AUTO) 7.6 (0-10); NEUTROPHILS # (AUTO) 12.8 K/ul (2.0-6.9); NEUTROPHILS % (AUTO) 84.5 % (42.2-75.2); PLATELET COUNT 233 10^3/uL (140-440); RDW COEFFICIENT OF VARIATION 13.8 % (11.6-14.8); RED BLOOD COUNT 3.94 10^6/ul (4.70-6.10); WHITE BLOOD COUNT 15.17 K/ul (4.2-10.2)
[2021-04-03] MEDS: SODIUM CHLORIDE 0.9%-KCL 20 MEQ 1,000 ML IV SCH ×2 (05:38→14:05)
[2021-04-03] MEDS: DUONEB NEB SCH ×5 (05:45→23:09)
[2021-04-03 05:49] LABS: PROTHROMBIN TIME 11.9 SEC (9.3-11.0)
[2021-04-03 05:52] LABS: ALANINE AMINOTRANSFERASE 79.5 U/L (0-50); ALBUMIN 3.66 g/dL (3.5-5.0); ALKALINE PHOSPHATASE 162.4 U/L (56-119); ASPARTATE AMINO TRANSFERASE 59.1 U/L (17-59); BILIRUBIN,TOTAL 1.32 mg/dL (0.2-1.3); BLOOD UREA NITROGEN 23.1 mg/dL (9-20); CALCIUM 9.22 mg/dL (8.4-10.2); CARBON DIOXIDE 23.9 mmol/L (22-30.0); CHLORIDE 109.7 mmol/L (98-107); CREATININE 0.59 mg/dL (0.60-1.10); GLUCOSE 320.2 mg/dL (74-106); POTASSIUM 4.69 mmol/L (3.5-5.1); SODIUM 138.2 mmol/L (134.5-145); TOTAL PROTEIN 6.32 g/dL (6.3-8.2)
[2021-04-03 06:02] LABS: TROPONIN I 0.46 ng/ml (0.0000-0.120)
[2021-04-03] MEDS: HUMULIN R SUBCUT PRN ×4 (06:18→20:45)
[2021-04-03] MEDS: D5%-NS-KCL 20 MEQ/L IV SOL 1,000 ML IV SCH (07:27)
[2021-04-03] MEDS: LOVENOX SUBCUT SCH ×2 (08:35→20:44)
[2021-04-03] MEDS ORDERED: TRANDATE IVP PRN (10:45)
[2021-04-03 17:27] LABS: AMPHETAMINE SCREEN,URINE NEGATIVE (NEGATIVE); BARBITURATE SCREEN,URINE NEGATIVE (NEGATIVE); BENZODIAZEPINES SCREEN,URINE NEGATIVE (NEGATIVE); CANNABINOID SCREEN,URINE NEGATIVE (NEGATIVE); COCAIN SCREEN,URINE NEGATIVE (NEGATIVE); METHADONE URINE SCREEN NEGATIVE (NEGATIVE); METHAMPHETAMINES SCREEN,URINE NEGATIVE (NEGATIVE); OPIATE SCREEN,URINE NEGATIVE (NEGATIVE); OXYCODONE URINE SCREEN NEGATIVE (NEGATIVE); PHENCYCLIDINE SCREEN,URINE NEGATIVE (NEGATIVE); PROPOXYPHENE URINE SCREEN NEGATIVE (NEGATIVE); TRICYCLIC ANTIDEPRESSANTS URIN NEGATIVE (NEGATIVE)
--- NOTE | 2021-04-03 19:44 | PCM.DC ---
Final Diagnosis: Medications at Discharge: Ambulatory Orders Medication Instructions Recorded nitroglycerin 0.4 mg sublingual 0.4 mg SUBLINGUAL Q5MIN X 3 DOSES 12/27/12 tablet (Nitrostat) PRN losartan 50 mg tablet 50 mg PO BID 05/31/13 aspirin 81 mg chewable tablet 81 mg PO DAILY 04/02/21 atorvastatin 80 mg tablet 80 mg PO BEDTIME 04/02/21 copper 2 mg tablet 2 mg PO BID 04/02/21 ferrous sulfate 325 mg (65 mg 325 mg PO TID 04/02/21 iron) tablet isosorbide mononitrate 60 mg 60 mg PO DAILY 04/02/21 tablet,extended release 24 hr naproxen sodium 220 mg capsule 440 mg PO BEDTIME 04/02/21 (Aleve) ranolazine 500 mg tablet,extended 500 mg PO BID 04/02/21 release,12 hr
--- NOTE | 2021-04-03 20:15 | PCM.PROG ---
Date Seen by Provider: 04/03/21 Time Seen by Provider: 12:00 Subjective: Not responding except somewhat to painful stimuli. HPI - admit through ER with the consequences of a profound and prolonged hypoglycemia episode at home. Objective: Vitals: T=99.8 F, P=117, R=22, QX=415/70, SPO2=98 HEENT: [Grossly WNL] Neck: [Neg change] Lungs: clear[] CVS: [RRR, no m] Abdomen: [soft] Extremities: [no edema] Neurological: [unresponsive , sonorous most of the time] Skin: [no acute change] Lab/Tests/Diagnostic Imaging: [] (1) Acute metabolic encephalopathy due to hypoglycemia: Status: Acute Code(s): G93.41 - Metabolic encephalopathy; E16.2 - Hypoglycemia, unspecified SNOMED Code(s): 46752261 Assessment: Very little change from when admitted. Basically comatose. Brain MRI unremarkable. Apparently the hypoglycemia the source of the comatose state, and not CVA. Family would like him transferred for neurology eval, as would the staff, but cannot find a bed at any hospital in this general area. Nutrition is going to be an issue eventually. Hyperal/TPN or feeding tube will need to be considered. Currently IVF only. Add stomach acid reducing med. For now, he is not a DNR, but a DNI. I advised family that the overall prognosis is poor. (2) Pneumonia: Status: Acute Code(s): J18.9 - Pneumonia, unspecified organism SNOMED Code(s): 613004430 Assessment: Very minor pneumonia, not seen on CXR , but at lung bases with abd/pel CT. WBC coming down. Sat. normal. On rocephin as monotherapy. (3) Elevated troponin: Status: Acute Code(s): R77.8 - Other specified abnormalities of plasma proteins SNOMED Code(s): 690707943 Assessment: Troponin did go up a bit, coming back down. Prior hospitalist advised me that there were no EKG changes. Monitor. On lovenox. (4) Diabetes mellitus, type II, insulin dependent: Status: Acute Code(s): E11.9 - Type 2 diabetes mellitus without complications; Z79.4 - terminal operator (current) use of insulin SNOMED Code(s): 016270643 Assessment: Using a sliding scale to control. Plan: 1. Metabolic encephalopathy - continue current management and search for a transfer site with a neurologist. 2. Pneumonia - minor, cont. rocephin. 3. Elevated troponin, mild, coming back down, monitor. 4. T2DM - control blood sugar.
[2021-04-03] MEDS: ROCEPHIN 1 GM/50 ML D5W 1 GM/50 ML BAG IV SCH (20:44)
[2021-04-04] MEDS: SODIUM CHLORIDE 0.9%-KCL 20 MEQ 1,000 ML IV SCH ×2 (01:29→11:28)
[2021-04-04] MEDS: DUONEB NEB SCH ×4 (05:21→23:10)
[2021-04-04 05:43] LABS: BASOPHILS % (AUTO) 0.3 % (0.0-3.0); HEMATOCRIT 36.5 % (42.0-52.0); HEMOGLOBIN 12.4 g/dl (14.0-18.0); IMMATURE GRANULOCYTE # (AUTO) 0.1 (0.0-1.0); IMMATURE GRANULOCYTE % (AUTO) 0.7 % (0.0-5.0); LYMPHOCYTES # (AUTO) 0.7 K/uL (0.60-3.4); LYMPHOCYTES % (AUTO) 5.9 (10.0-50.0); MEAN CORPUSCULAR HEMOGLOBIN 32.6 pg (27.0-31.0); MEAN CORPUSCULAR VOLUME 96.1 fl (80.0-94.0); MONOCYTES # (AUTO) 0.9 K/uL (0.4-2.0); MONOCYTES % (AUTO) 7.3 (0-10); NEUTROPHILS # (AUTO) 10.3 K/ul (2.0-6.9); NEUTROPHILS % (AUTO) 85.8 % (42.2-75.2); PLATELET COUNT 179 10^3/uL (140-440); WHITE BLOOD COUNT 11.94 K/ul (4.2-10.2)
[2021-04-04 06:00] LABS: ALANINE AMINOTRANSFERASE 64.2 U/L (0-50); ALBUMIN 3.78 g/dL (3.5-5.0); ALKALINE PHOSPHATASE 174.3 U/L (56-119); ASPARTATE AMINO TRANSFERASE 44.2 U/L (17-59); BILIRUBIN,TOTAL 1.74 mg/dL (0.2-1.3); BLOOD UREA NITROGEN 18.9 mg/dL (9-20); CALCIUM 9.28 mg/dL (8.4-10.2); CARBON DIOXIDE 21.9 mmol/L (22-30.0); CHLORIDE 112.3 mmol/L (98-107); CREATININE 0.57 mg/dL (0.60-1.10); GLUCOSE 322.7 mg/dL (74-106); POTASSIUM 4.74 mmol/L (3.5-5.1); TOTAL PROTEIN 6.43 g/dL (6.3-8.2)
[2021-04-04 06:02] LABS: PROTHROMBIN TIME 11.4 SEC (9.3-11.0)
[2021-04-04] MEDS: HUMULIN R SUBCUT PRN ×4 (06:48→20:34)
[2021-04-04] MEDS: LOVENOX SUBCUT SCH ×2 (08:17→20:33)
[2021-04-04] MEDS: PROTONIX IV IVP SCH (09:31)
--- NOTE | 2021-04-04 11:02 | PCM.PROG ---
Date Seen by Provider: 04/04/21 Time Seen by Provider: 10:50 Subjective: Hospital Day 2 () at bedside/ Remain in an unconscious state Fails to follow commands Objective: Vitals: T=98.3 F, P=93, R=26, AZ=348/68, SPO2=97 HEENT: Clear Neck: suple Lungs: CTA--AF CVS: HR-RRR Abdomen: Soft non tender/no guarding Extremities: neg edema Neurological: Remains comatose Skin: [] Lab/Tests/Diagnostic Imaging: [] (1) Acute metabolic encephalopathy due to hypoglycemia: Status: Acute Code(s): G93.41 - Metabolic encephalopathy; E16.2 - Hypoglycemia, unspecified SNOMED Code(s): 27511394 (2) Pneumonia: Status: Acute Code(s): J18.9 - Pneumonia, unspecified organism SNOMED Code(s): 475029522 (3) Elevated troponin: Status: Acute Code(s): R77.8 - Other specified abnormalities of plasma proteins SNOMED Code(s): 990918732 (4) Diabetes mellitus, type II, insulin dependent: Status: Acute Code(s): E11.9 - Type 2 diabetes mellitus without complications; Z79.4 - buttermaker helper (current) use of insulin SNOMED Code(s): 018136716 Plan: Continue Symptomatic and supportive treatment Is on waiting list for 3 hospital for possible transfer
--- NOTE | 2021-04-04 13:13 | ED.PDOC ---
General ED Provider: Dr. DENA CASANOVA Chief Complaint: Hypoglycemia Stated Complaint: altered LOC Time Seen by Provider: 04/02/21 05:23 Mode of Arrival: Wheelchair Information Source: Family Primary Care Provider: DENA DUONG Sepsis Protocol: For patient's 13 years and over: Temp is 96.8 and below OR 101 and greater Pulse >90 BPM Resp >20/minute Acutely Altered Mental Status Are patient's symptoms suggestive of a new infection, such as: -Pneumonia -Skin, Soft Tissue -Endocarditis -UTI -Bone, Joint Infection -Implantable Device -Acute Abdominal Infection -Wound Infection -Meningitis -Blood Stream Catheter Infection -Unknown [facility] Medical History (Updated 04/03/21 @ 20:58 by CHAITANYA CONTEH MD) Diabetes HTN (hypertension) Hyperlipidemia Rotator cuff arthropathy Social History Smoking and tobacco status: Never smoker Surgical History (Updated 04/02/21 @ 15:50 by AKIN TALLEY, RN) H/O heart artery stent History of penile implant History of quadruple bypass Course Course Hematology/Chemistry: 04/04/21 04:50 04/04/21 04:50 Orders, Labs, Meds: Lab Review 04/02/21 04/02/21 04/02/21 05:45 05:45 05:50 WBC RBC Hgb Hct MCV MCH MCHC RDW Coeff of Bandar Plt Count Immature Gran % (Auto) Neut % (Auto) Lymph % (Auto) Moffat % (Auto) Eos % (Auto) Baso % (Auto) Neut # (Auto) Lymph # (Auto) Moffat # (Auto) Eos # (Auto) Baso # (Auto) Immature Gran # (Auto) Puncture Site Base Excess O2 Saturation ABG pH ABG pCO2 ABG pO2 ABG HCO3 ABG Total CO2 Gio Test Hemoglobin Oxyhemoglobin Carboxyhemoglobin Total Hemoglobin O2 Delivery Device Oxygen Liter Flow Sodium Potassium Chloride Carbon Dioxide Anion Gap BUN Creatinine Estimated GFR (MDRD) BUN/Creatinine Ratio Glucose Lactic Acid Calcium Total Bilirubin AST ALT Alkaline Phosphatase Troponin I Total Protein Albumin Globulin Albumin/Globulin Ratio Procalcitonin 0.25 H Urine Color Yellow Urine Clarity Clear Urine pH 6.5 Ur Specific [place] 1.020 Urine Protein Negative Urine Glucose (UA) 2+ H Urine Ketones Negative Urine Blood Negative Urine Nitrite Negative Urine Bilirubin Negative Urine Urobilinogen 0.2 Ur Leukocyte Esterase Negative Urine Opiates Screen Negative Ur Oxycodone Screen Positive H Urine Methadone Screen Negative Ur Propoxyphene Screen Negative Ur Barbiturates Screen Negative U Tricyclic Antidepress Negative Ur Phencyclidine Scrn Negative Ur Amphetamine Screen Negative U Methamphetamines Scrn Negative U Benzodiazepines Scrn Positive H Urine Cocaine Screen Negative U Cannabinoids Screen Negative SARS CoV-2 RNA Rapid KARRIE 04/02/21 04/02/21 04/02/21 05:53 05:53 05:55 WBC 17.81 H D RBC 3.64 L Hgb 12.0 L Hct 34.8 L MCV 95.6 H MCH 33.0 H MCHC 34.5 RDW Coeff of Bandar 13.5 Plt Count 251 Immature Gran % (Auto) 1.0 Neut % (Auto) 87.8 H Lymph % (Auto) 4.5 L Moffat % (Auto) 6.5 Eos % (Auto) 0.0 Baso % (Auto) 0.2 Neut # (Auto) 15.6 H Lymph # (Auto) 0.8 Moffat # (Auto) 1.2 Eos # (Auto) 0.0 Baso # (Auto) 0.0 Immature Gran # (Auto) 0.2 Puncture Site Base Excess O2 Saturation ABG pH ABG pCO2 ABG pO2 ABG HCO3 ABG Total CO2 Gio Test Hemoglobin Oxyhemoglobin Carboxyhemoglobin Total Hemoglobin O2 Delivery Device Oxygen Liter Flow Sodium 140.3 Potassium 3.25 L Chloride 107.0 Carbon Dioxide 26.9 Anion Gap 9.65 BUN 31.2 H Creatinine 0.68 Estimated GFR (MDRD) 115.00 BUN/Creatinine Ratio 45.88 Glucose 166.8 H Lactic Acid Calcium 8.75 Total Bilirubin 0.84 AST 56.1 ALT 84.1 H Alkaline Phosphatase 144.9 H D Troponin I 0.372 H Total Protein 5.98 L Albumin 3.58 Globulin 2.40 Albumin/Globulin Ratio 1.49 Procalcitonin Urine Color Urine Clarity Urine pH Ur Specific [place] Urine Protein Urine Glucose (UA) Urine Ketones Urine Blood Urine Nitrite Urine Bilirubin Urine Urobilinogen Ur Leukocyte Esterase Urine Opiates Screen Ur Oxycodone Screen Urine Methadone Screen Ur Propoxyphene Screen Ur Barbiturates Screen U Tricyclic Antidepress Ur Phencyclidine Scrn Ur Amphetamine Screen U Methamphetamines Scrn U Benzodiazepines Scrn Urine Cocaine Screen U Cannabinoids Screen SARS CoV-2 RNA Rapid KARRIE 04/02/21 04/02/21 04/02/21 07:25 08:22 09:32 WBC RBC Hgb Hct MCV MCH MCHC RDW Coeff of Bandar Plt Count Immature Gran % (Auto) Neut % (Auto) Lymph % (Auto) Moffat % (Auto) Eos % (Auto) Baso % (Auto) Neut # (Auto) Lymph # (Auto) Moffat # (Auto) Eos # (Auto) Baso # (Auto) Immature Gran # (Auto) Puncture Site Rrad Base Excess 2.7 O2 Saturation 97.0 ABG pH 7.41 ABG pCO2 43.0 ABG pO2 90.0 ABG HCO3 27.3 ABG Total CO2 28.6 H Gio Test Pos Hemoglobin 1.0 Oxyhemoglobin 95.4 Carboxyhemoglobin 1.2 Total Hemoglobin 11.8 O2 Delivery Device Cannula Oxygen Liter Flow 2.00 Sodium Potassium Chloride Carbon Dioxide Anion Gap BUN Creatinine Estimated GFR (MDRD) BUN/Creatinine Ratio Glucose Lactic Acid 3.05 H Calcium Total Bilirubin AST ALT Alkaline Phosphatase Troponin I Total Protein Albumin Globulin Albumin/Globulin Ratio Procalcitonin Urine Color Urine Clarity Urine pH Ur Specific [place] Urine Protein Urine Glucose (UA) Urine Ketones Urine Blood Urine Nitrite Urine Bilirubin Urine Urobilinogen Ur Leukocyte Esterase Urine Opiates Screen Ur Oxycodone Screen Urine Methadone Screen Ur Propoxyphene Screen Ur Barbiturates Screen U Tricyclic Antidepress Ur Phencyclidine Scrn Ur Amphetamine Screen U Methamphetamines Scrn U Benzodiazepines Scrn Urine Cocaine Screen U Cannabinoids Screen SARS CoV-2 RNA Rapid KARRIE Negative Orders Category Date Time Status ADMIT PATIENT INPATIENT .TO [facility] (MONITORED BED) ADMISSION 04/02/21 13:51 Active ABG DRAW REQUEST Stat CARDIO 04/02/21 09:25 Completed EKG-(ED ONLY) Stat CARDIO 04/02/21 05:36 Completed TELEMETRY MONITORING TELE CARE 04/02/21 13:53 Active ABG COOX Stat LAB 04/02/21 09:32 Completed BLOOD CULTURE (ED ONLY) Stat LAB 04/02/21 08:22 Results CBC W/ AUTO DIFF Stat LAB 04/02/21 05:53 Completed COMPREHENSIVE METABOLIC PANEL Stat LAB 04/02/21 05:53 Completed DRUG SCREEN, URINE, RAPID Stat LAB 04/02/21 05:45 Completed LACTIC ACID Stat LAB 04/02/21 08:22 Completed PROCALCITONIN Stat LAB 04/02/21 05:50 Completed URINALYSIS C & S IF INDICATED Stat LAB 04/02/21 05:45 Completed Ceftriaxone/D5w 1 gm Premix [Rocephin 1 gm/50 ml D5w] MEDS 04/02/21 08:05 Discontinued 1 gm in 50 ml IV ONCE Dextrose 5 %-Water [Dextrose 5%-Water IV Soln] 500 ml MEDS 04/02/21 06:02 Discontinued IV BOLUS Dextrose 50 % in Water [Dextrose 50%-Water Abboject] MEDS 04/02/21 05:20 Discontinued 50 ml IVP ONCE ONE Dextrose 50 % in Water [Dextrose 50%-Water Abboject] MEDS 04/02/21 07:41 Discontinued 50 ml IVP ONCE STA Flumazenil [Romazicon] MEDS 04/02/21 07:30 Discontinued 0.2 mg IVP ONCE ONE Naloxone HCl [Narcan] MEDS 04/02/21 07:08 Discontinued 0.4 mg .ROUTE .STK-MED ONE Naloxone HCl [Narcan] MEDS 04/02/21 07:11 Discontinued 0.4 mg IVP ONCE STA Piperacillin Sodium/Tazobactam [Zosyn 3.375 gm] 3.375 MEDS 04/02/21 13:50 Discontinued gm 0.9 % Sodium Chloride [Sodium Chloride] 50 ml IV ONCE Vitamin B-1 Inj [Thiamine] 100 mg MEDS 04/02/21 14:10 Discontinued 0.9 % Sodium Chloride [Sodium Chloride] [address] ABDOMEN/PELVIS WO CONTRAST Stat RADS 04/02/21 06:[address] CHEST W/O CONTRAST Stat RADS 04/02/21 07:[address] HEAD W/O CONTRAST Stat RADS 04/02/21 06:38 Completed MRI BRAIN W/O CONTRAST Stat RADS 04/02/21 09:56 Completed Medications Generic Name Dose Route Start Last Admin Trade Name Freq PRN Reason Stop Dose Admin Acetaminophen 650 mg 04/02/21 15:21 Acetaminophen 325 Mg Tablet PO Q4H PRN Temp >101 Albuterol/Ipratropium 3 ml 04/02/21 18:00 04/04/21 11:57 Ipratropium/Albuterol Vial.Neb NEB 3 ml RTQ6H AFSHAN Administration Enoxaparin Sodium 70 mg 04/03/21 09:00 04/04/21 08:17 Enoxaparin Sodium 100 Mg/Ml Syr SUBCUT 70 mg Q12HR AFSHAN Administration CEFTRIAXONE/D5W 1 GM PREMIX 1 gm in 50 mls @ 75 mls/hr 04/03/21 21:00 04/03/21 20:44 Rocephin 1 Gm/50 Ml D5w IV 04/05/21 20:59 75 mls/hr BEDTIME AFSHAN Administration Potassium Chloride/Sodium Chloride 1,000 mls @ 100 mls/hr 04/03/21 10:44 04/04/21 11:28 Sodium Chloride 0.9%-Kcl 20 Meq IV 100 mls/hr .Q10H AFSHAN Administration Insulin Human Regular 0 unit 04/02/21 20:43 04/04/21 11:38 Insulin Regular, Human 100 Unit/Ml (3ml) Vial SUBCUT 6 unit PRN PRN Administration Hyperglycemia Protocol Labetalol HCl 20 mg 04/03/21 10:45 Labetalol Hcl 20 Mg/4 Ml Disp.Syrin IVP Q2H PRN SBP GREATER THAN 180 Pantoprazole Sodium 40 mg 04/04/21 09:00 04/04/21 09:31 Pantoprazole Sodium 40 Mg Vial IVP 40 mg DAILY AFSHAN Administration Discontinued Medications Generic Name Dose Route Start Last Admin Trade Name Freq PRN Reason Stop Dose Admin Dextrose 50 ml 04/02/21 05:20 04/02/21 05:21 Dextrose 50 % In Water 50 Ml Disp.Syrin IVP 04/02/21 05:21 50 ml ONCE ONE Administration Dextrose 50 ml 04/02/21 07:41 04/02/21 07:43 Dextrose 50 % In Water 50 Ml Disp.Syrin IVP 04/02/21 07:42 50 ml ONCE STA Administration Flumazenil 0.2 mg 04/02/21 07:30 04/02/21 07:37 Flumazenil 0.1 Mg/1 Ml Mdv IVP 04/02/21 07:31 0.2 mg ONCE ONE Administration Dextrose 500 mls @ 500 mls/hr 04/02/21 06:02 04/02/21 06:03 Dextrose 5%-Water Iv Soln IV 04/02/21 07:01 500 mls/hr BOLUS STA Administration CEFTRIAXONE/D5W 1 GM PREMIX 1 gm in 50 mls @ 75 mls/hr 04/02/21 08:05 04/02/21 09:04 Rocephin 1 Gm/50 Ml D5w IV 04/02/21 08:44 75 mls/hr ONCE STA Administration Piperacillin Sod/Tazobactam 50 mls @ 50 mls/hr 04/02/21 13:50 04/02/21 14:03 Sod 3.375 gm/ Sodium Chloride IV 04/02/21 14:49 50 mls/hr ONCE STA Administration Thiamine HCl 100 mg/ Sodium 51 mls @ 100 mls/hr 04/02/21 14:10 04/02/21 14:45 Chloride IV 04/02/21 14:40 100 mls/hr ONCE STA Administration Dextrose/Sodium Chloride 1,000 mls @ 125 mls/hr 04/02/21 10:30 04/03/21 02:32 Dextrose 5%-1/2ns Iv Solution IV Not Given .Q8H AFSHAN Potassium Chloride/Dextrose/Sod Cl 1,000 mls @ 75 mls/hr 04/02/21 15:30 04/03/21 07:27 D5%-Ns-Kcl 20 Meq/L Iv Karen IV Not Given .[id number] AFSHAN CEFTRIAXONE/D5W 1 GM PREMIX 1 gm in 50 mls @ 75 mls/hr 04/02/21 21:00 04/02/21 21:03 Rocephin 1 Gm/50 Ml D5w IV 04/09/21 20:59 75 mls/hr DAILY AFSHAN Administration Potassium Chloride/Sodium Chloride 1,000 mls @ 150 mls/hr 04/02/21 22:00 04/03/21 05:38 Sodium Chloride 0.9%-Kcl 20 Meq IV 150 mls/hr .Q6H40M AFSHAN Administration Naloxone HCl 0.4 mg 04/02/21 07:11 04/02/21 07:12 Naloxone Hcl 0.4 Mg/Ml Vial IVP 04/02/21 07:12 0.4 mg ONCE STA Administration Vital Signs: Temp Pulse Resp BP Pulse Ox 04/02/21 06:15 92 H 22 154/61 H 98 04/02/21 05:40 82 18 132/66 98 04/02/21 05:13 96.3 F L 59 L 13 136/62 98 Discharge Plan Discharge Patient Disposition: ADMITTED INPATIENT Discharge Problem: Hypoglycemia, Acute alteration in mental status ED Provider: DENA CASANOVA Condition: Serious Physician Progress Note: []
--- NOTE | 2021-04-04 13:19 | ED.PDOC ---
General ED Provider: Dr. DENA CASANOVA Chief Complaint: Hypoglycemia Stated Complaint: altered mental status Time Seen by Provider: 04/02/21 05:23 Mode of Arrival: Wheelchair Information Source: Family Primary Care Provider: DENA DUONG Nursing and Triage Documentation Reviewed and Agree: Yes Does patient meet sepsis criteria?: No System Inflammatory Response Syndrome: Not Applicable Sepsis Protocol: For patient's 13 years and over: Temp is 96.8 and below OR 101 and greater Pulse >90 BPM Resp >20/minute Acutely Altered Mental Status Are patient's symptoms suggestive of a new infection, such as: -Pneumonia -Skin, Soft Tissue -Endocarditis -UTI -Bone, Joint Infection -Implantable Device -Acute Abdominal Infection -Wound Infection -Meningitis -Blood Stream Catheter Infection -Unknown Review of Systems Review Of Systems Constitutional: Reports Weakness All Other Systems: Reviewed and Negative [facility] Medical History (Updated 04/03/21 @ 20:58 by CHAITANYA CONTEH MD) Diabetes HTN (hypertension) Hyperlipidemia Rotator cuff arthropathy Social History Smoking and tobacco status: Never smoker Surgical History (Updated 04/02/21 @ 15:50 by AKIN TALLEY RN) H/O heart artery stent History of penile implant History of quadruple bypass Physical Exam Physical Exam Appearance: Reports Ill-appearing Ill-appearing: Mild Pain Distress: Not Applicable Eyes: Reports MACIE, EOMI and Conjunctiva clear ENT: Reports Ears normal, Nose normal and Oropharynx normal Neck: Supple Respiratory: Reports Airway patent, Breath sounds clear and Breath sounds equal Cardiovascular: Reports RRR, Pulses normal, No rub and No murmur GI/: Reports Soft, Nontender, No masses and Bowel sounds normal Musculoskeletal: Reports ROM intact, No edema and No calf tenderness Skin: Reports Warm, Dry and Normal color Neurological: Reports Sensation intact, Motor intact, Cranial nerves intact and Unresponsive Psychiatric: Reports Not Examined Critical Care Note Critical Care Note Total Critical Care Time (mins): 30 Course Course Hematology/Chemistry: 04/04/21 04:50 04/04/21 04:50 Orders, Labs, Meds: Lab Review 04/02/21 04/02/21 04/02/21 05:45 05:45 05:50 WBC RBC Hgb Hct MCV MCH MCHC RDW Coeff of Bandar Plt Count Immature Gran % (Auto) Neut % (Auto) Lymph % (Auto) Ransom % (Auto) Eos % (Auto) Baso % (Auto) Neut # (Auto) Lymph # (Auto) Ransom # (Auto) Eos # (Auto) Baso # (Auto) Immature Gran # (Auto) Puncture Site Base Excess O2 Saturation ABG pH ABG pCO2 ABG pO2 ABG HCO3 ABG Total CO2 Gio Test Hemoglobin Oxyhemoglobin Carboxyhemoglobin Total Hemoglobin O2 Delivery Device Oxygen Liter Flow Sodium Potassium Chloride Carbon Dioxide Anion Gap BUN Creatinine Estimated GFR (MDRD) BUN/Creatinine Ratio Glucose Lactic Acid Calcium Total Bilirubin AST ALT Alkaline Phosphatase Troponin I Total Protein Albumin Globulin Albumin/Globulin Ratio Procalcitonin 0.25 H Urine Color Yellow Urine Clarity Clear Urine pH 6.5 Ur Specific [place] 1.020 Urine Protein Negative Urine Glucose (UA) 2+ H Urine Ketones Negative Urine Blood Negative Urine Nitrite Negative Urine Bilirubin Negative Urine Urobilinogen 0.2 Ur Leukocyte Esterase Negative Urine Opiates Screen Negative Ur Oxycodone Screen Positive H Urine Methadone Screen Negative Ur Propoxyphene Screen Negative Ur Barbiturates Screen Negative U Tricyclic Antidepress Negative Ur Phencyclidine Scrn Negative Ur Amphetamine Screen Negative U Methamphetamines Scrn Negative U Benzodiazepines Scrn Positive H Urine Cocaine Screen Negative U Cannabinoids Screen Negative SARS CoV-2 RNA Rapid KARRIE 04/02/21 04/02/21 04/02/21 05:53 05:53 05:55 WBC 17.81 H D RBC 3.64 L Hgb 12.0 L Hct 34.8 L MCV 95.6 H MCH 33.0 H MCHC 34.5 RDW Coeff of [place]ar 13.5 Plt Count 251 Immature Gran % (Auto) 1.0 Neut % (Auto) 87.8 H Lymph % (Auto) 4.5 L Ransom % (Auto) 6.5 Eos % (Auto) 0.0 Baso % (Auto) 0.2 Neut # (Auto) 15.6 H Lymph # (Auto) 0.8 Ransom # (Auto) 1.2 Eos # (Auto) 0.0 Baso # (Auto) 0.0 Immature Gran # (Auto) 0.2 Puncture Site Base Excess O2 Saturation ABG pH ABG pCO2 ABG pO2 ABG HCO3 ABG Total CO2 Gio Test Hemoglobin Oxyhemoglobin Carboxyhemoglobin Total Hemoglobin O2 Delivery Device Oxygen Liter Flow Sodium 140.3 Potassium 3.25 L Chloride 107.0 Carbon Dioxide 26.9 Anion Gap 9.65 BUN 31.2 H Creatinine 0.68 Estimated GFR (MDRD) 115.00 BUN/Creatinine Ratio 45.88 Glucose 166.8 H Lactic Acid Calcium 8.75 Total Bilirubin 0.84 AST 56.1 ALT 84.1 H Alkaline Phosphatase 144.9 H D Troponin I 0.372 H Total Protein 5.98 L Albumin 3.58 Globulin 2.40 Albumin/Globulin Ratio 1.49 Procalcitonin Urine Color Urine Clarity Urine pH Ur Specific [place] Urine Protein Urine Glucose (UA) Urine Ketones Urine Blood Urine Nitrite Urine Bilirubin Urine Urobilinogen Ur Leukocyte Esterase Urine Opiates Screen Ur Oxycodone Screen Urine Methadone Screen Ur Propoxyphene Screen Ur Barbiturates Screen U Tricyclic Antidepress Ur Phencyclidine Scrn Ur Amphetamine Screen U Methamphetamines Scrn U Benzodiazepines Scrn Urine Cocaine Screen U Cannabinoids Screen SARS CoV-2 RNA Rapid KARRIE 04/02/21 04/02/21 04/02/21 07:25 08:22 09:32 WBC RBC Hgb Hct MCV MCH MCHC RDW Coeff of Bandar Plt Count Immature Gran % (Auto) Neut % (Auto) Lymph % (Auto) Ransom % (Auto) Eos % (Auto) Baso % (Auto) Neut # (Auto) Lymph # (Auto) Ransom # (Auto) Eos # (Auto) Baso # (Auto) Immature Gran # (Auto) Puncture Site Rrad Base Excess 2.7 O2 Saturation 97.0 ABG pH 7.41 ABG pCO2 43.0 ABG pO2 90.0 ABG HCO3 27.3 ABG Total CO2 28.6 H Gio Test Pos Hemoglobin 1.0 Oxyhemoglobin 95.4 Carboxyhemoglobin 1.2 Total Hemoglobin 11.8 O2 Delivery Device Cannula Oxygen Liter Flow 2.00 Sodium Potassium Chloride Carbon Dioxide Anion Gap BUN Creatinine Estimated GFR (MDRD) BUN/Creatinine Ratio Glucose Lactic Acid 3.05 H Calcium Total Bilirubin AST ALT Alkaline Phosphatase Troponin I Total Protein Albumin Globulin Albumin/Globulin Ratio Procalcitonin Urine Color Urine Clarity Urine pH Ur Specific [place] Urine Protein Urine Glucose (UA) Urine Ketones Urine Blood Urine Nitrite Urine Bilirubin Urine Urobilinogen Ur Leukocyte Esterase Urine Opiates Screen Ur Oxycodone Screen Urine Methadone Screen Ur Propoxyphene Screen Ur Barbiturates Screen U Tricyclic Antidepress Ur Phencyclidine Scrn Ur Amphetamine Screen U Methamphetamines Scrn U Benzodiazepines Scrn Urine Cocaine Screen U Cannabinoids Screen SARS CoV-2 RNA Rapid KARRIE Negative Orders Category Date Time Status ADMIT PATIENT INPATIENT .TO [facility] (MONITORED BED) ADMISSION 04/02/21 13:51 Active ABG DRAW REQUEST Stat CARDIO 04/02/21 09:25 Completed EKG-(ED ONLY) Stat CARDIO 04/02/21 05:36 Completed TELEMETRY MONITORING TELE CARE 04/02/21 13:53 Active ABG COOX Stat LAB 04/02/21 09:32 Completed BLOOD CULTURE (ED ONLY) Stat LAB 04/02/21 08:22 Results CBC W/ AUTO DIFF Stat LAB 04/02/21 05:53 Completed COMPREHENSIVE METABOLIC PANEL Stat LAB 04/02/21 05:53 Completed DRUG SCREEN, URINE, RAPID Stat LAB 04/02/21 05:45 Completed LACTIC ACID Stat LAB 04/02/21 08:22 Completed PROCALCITONIN Stat LAB 04/02/21 05:50 Completed URINALYSIS C & S IF INDICATED Stat LAB 04/02/21 05:45 Completed Ceftriaxone/D5w 1 gm Premix [Rocephin 1 gm/50 ml D5w] MEDS 04/02/21 08:05 Discontinued 1 gm in 50 ml IV ONCE Dextrose 5 %-Water [Dextrose 5%-Water IV Soln] 500 ml MEDS 04/02/21 06:02 Discontinued IV BOLUS Dextrose 50 % in Water [Dextrose 50%-Water Abboject] MEDS 04/02/21 05:20 Discontinued 50 ml IVP ONCE ONE Dextrose 50 % in Water [Dextrose 50%-Water Abboject] MEDS 04/02/21 07:41 Discontinued 50 ml IVP ONCE STA Flumazenil [Romazicon] MEDS 04/02/21 07:30 Discontinued 0.2 mg IVP ONCE ONE Naloxone HCl [Narcan] MEDS 04/02/21 07:08 Discontinued 0.4 mg .ROUTE .STK-MED ONE Naloxone HCl [Narcan] MEDS 04/02/21 07:11 Discontinued 0.4 mg IVP ONCE STA Piperacillin Sodium/Tazobactam [Zosyn 3.375 gm] 3.375 MEDS 04/02/21 13:50 Discontinued gm 0.9 % Sodium Chloride [Sodium Chloride] 50 ml IV ONCE Vitamin B-1 Inj [Thiamine] 100 mg MEDS 04/02/21 14:10 Discontinued 0.9 % Sodium Chloride [Sodium Chloride] [address] ABDOMEN/PELVIS WO CONTRAST Stat RADS 04/02/21 06:[address] CHEST W/O CONTRAST Stat RADS 04/02/21 07:[address] HEAD W/O CONTRAST Stat RADS 04/02/21 06:38 Completed MRI BRAIN W/O CONTRAST Stat RADS 04/02/21 09:56 Completed Medications Generic Name Dose Route Start Last Admin Trade Name Ludwin PRN Reason Stop Dose Admin Acetaminophen 650 mg 04/02/21 15:21 Acetaminophen 325 Mg Tablet PO Q4H PRN Temp >101 Albuterol/Ipratropium 3 ml 04/02/21 18:00 04/04/21 11:57 Ipratropium/Albuterol Vial.Neb NEB 3 ml RTQ6H AFSHAN Administration Enoxaparin Sodium 70 mg 04/03/21 09:00 04/04/21 08:17 Enoxaparin Sodium 100 Mg/Ml Syr SUBCUT 70 mg Q12HR AFSHAN Administration CEFTRIAXONE/D5W 1 GM PREMIX 1 gm in 50 mls @ 75 mls/hr 04/03/21 21:00 20:44 Rocephin 1 Gm/50 Ml D5w IV 04/05/21 20:59 75 mls/hr BEDTIME AFSHAN Administration Dextrose/Sodium Chloride 1,000 mls @ 83 mls/hr 04/04/21 14:00 04/04/21 13:42 Dextrose 5%-1/2ns Iv Solution IV 83 mls/hr .Q12H3M AFSHAN Administration Insulin Human Regular 0 unit 04/02/21 20:43 04/04/21 11:38 Insulin Regular, Human 100 Unit/Ml (3ml) Vial SUBCUT 6 unit PRN PRN Administration Hyperglycemia Protocol Labetalol HCl 20 mg 04/03/21 10:45 Labetalol Hcl 20 Mg/4 Ml Disp.Syrin IVP Q2H PRN SBP GREATER THAN 180 Pantoprazole Sodium 40 mg 04/04/21 09:00 04/04/21 09:31 Pantoprazole Sodium 40 Mg Vial IVP 40 mg DAILY AFSHAN Administration Discontinued Medications Generic Name Dose Route Start Last Admin Trade Name Freq PRN Reason Stop Dose Admin Dextrose 50 ml 04/02/21 05:20 04/02/21 05:21 Dextrose 50 % In Water 50 Ml Disp.Syrin IVP 04/02/21 05:21 50 ml ONCE ONE Administration Dextrose 50 ml 04/02/21 07:41 04/02/21 07:43 Dextrose 50 % In Water 50 Ml Disp.Syrin IVP 04/02/21 07:42 50 ml ONCE STA Administration Flumazenil 0.2 mg 04/02/21 07:30 04/02/21 07:37 Flumazenil 0.1 Mg/1 Ml Mdv IVP 04/02/21 07:31 0.2 mg ONCE ONE Administration Dextrose 500 mls @ 500 mls/hr 04/02/21 06:02 04/02/21 06:03 Dextrose 5%-Water Iv Soln IV 04/02/21 07:01 500 mls/hr BOLUS STA Administration CEFTRIAXONE/D5W 1 GM PREMIX 1 gm in 50 mls @ 75 mls/hr 04/02/21 08:05 04/02/21 09:04 Rocephin 1 Gm/50 Ml D5w IV 04/02/21 08:44 75 mls/hr ONCE STA Administration Piperacillin Sod/Tazobactam 50 mls @ 50 mls/hr 04/02/21 13:50 04/02/21 14:03 Sod 3.375 gm/ Sodium Chloride IV 04/02/21 14:49 50 mls/hr ONCE STA Administration Thiamine HCl 100 mg/ Sodium 51 mls @ 100 mls/hr 04/02/21 14:10 04/02/21 14:45 Chloride IV 04/02/21 14:40 100 mls/hr ONCE STA Administration Dextrose/Sodium Chloride 1,000 mls @ 125 mls/hr 04/02/21 10:30 04/03/21 02:32 Dextrose 5%-1/2ns Iv Solution IV Not Given .Q8H AFSHAN Potassium Chloride/Dextrose/Sod Cl 1,000 mls @ 75 mls/hr 04/02/21 15:30 04/03/21 07:27 D5%-Ns-Kcl 20 Meq/L Iv Karen IV Not Given .[id number] AFSHAN CEFTRIAXONE/D5W 1 GM PREMIX 1 gm in 50 mls @ 75 mls/hr 04/02/21 21:00 04/02/21 21:03 Rocephin 1 Gm/50 Ml D5w IV 04/09/21 20:59 75 mls/hr DAILY AFSHAN Administration Potassium Chloride/Sodium Chloride 1,000 mls @ 150 mls/hr 04/02/21 22:00 04/03/21 05:38 Sodium Chloride 0.9%-Kcl 20 Meq IV 150 mls/hr .Q6H40M AFSHAN Administration Potassium Chloride/Sodium Chloride 1,000 mls @ 100 mls/hr 04/03/21 10:44 04/04/21 11:28 Sodium Chloride 0.9%-Kcl 20 Meq IV 100 mls/hr .Q10H AFSHAN Administration Naloxone HCl 0.4 mg 04/02/21 07:11 04/02/21 07:12 Naloxone Hcl 0.4 Mg/Ml Vial IVP 04/02/21 07:12 0.4 mg ONCE STA Administration Vital Signs: Temp Pulse Resp BP Pulse Ox 04/02/21 06:15 92 H 22 154/61 H 98 04/02/21 05:40 82 18 132/66 98 04/02/21 05:13 96.3 F L 59 L 13 136/62 98 Discharge Plan Discharge Patient Disposition: ADMITTED INPATIENT Discharge Problem: Hypoglycemia, Acute alteration in mental status ED Provider: DENA CASANOVA Condition: Serious Physician Progress Note: There no significant change in patient condition since admission Basically comatose. The Brain MRI unremarkable. Suspect prolonged hypoglycemia the source of the comatose state, and not CVA. Spoke with his who remains at bedside who expresses her concern and advised she would like him transferred for neurology evaluation however there and no facilities that we have contacted that have a bed.He is on a waiting list for [address], [facility] and [facility] Felix concerned about his Nutrition which is going to be an issue eventually. Hyperal/TPN or feeding tube will need to be considered. Currently IVF only. For now, he is not a DNR, but a DNI. Expressed again to prognosis is guarded - that the overall prognosis is poor. []
[2021-04-04] MEDS: DEXTROSE 5%-1/2NS IV SOLUTION 1,000 ML IV SCH (13:42)
[2021-04-04] MEDS: ROCEPHIN 1 GM/50 ML D5W 1 GM/50 ML BAG IV SCH (20:34)
[2021-04-05] MEDS: DUONEB NEB SCH (05:17)
[2021-04-05] MEDS: HUMULIN R SUBCUT PRN ×2 (05:42→12:01)
[2021-04-05] MEDS: DEXTROSE 5%-1/2NS IV SOLUTION 1,000 ML IV SCH (05:42)
[2021-04-05 05:50] LABS: BASOPHILS % (AUTO) 0.2 % (0.0-3.0); HEMATOCRIT 36.6 % (42.0-52.0); HEMOGLOBIN 12.4 g/dl (14.0-18.0); IMMATURE GRANULOCYTE # (AUTO) 0.1 (0.0-1.0); IMMATURE GRANULOCYTE % (AUTO) 0.7 % (0.0-5.0); LYMPHOCYTES # (AUTO) 0.6 K/uL (0.60-3.4); LYMPHOCYTES % (AUTO) 5.9 (10.0-50.0); MEAN CORPUSCULAR HEMOGLOBIN 32.9 pg (27.0-31.0); MEAN CORPUSCULAR HGB CONC 33.9 (31.8-35.4); MEAN CORPUSCULAR VOLUME 97.1 fl (80.0-94.0); MONOCYTES # (AUTO) 0.8 K/uL (0.4-2.0); MONOCYTES % (AUTO) 7.7 (0-10); NEUTROPHILS # (AUTO) 8.7 K/ul (2.0-6.9); NEUTROPHILS % (AUTO) 85.5 % (42.2-75.2); PLATELET COUNT 162 10^3/uL (140-440); RDW COEFFICIENT OF VARIATION 13.6 % (11.6-14.8); RED BLOOD COUNT 3.77 10^6/ul (4.70-6.10)
[2021-04-05 06:03] LABS: ALANINE AMINOTRANSFERASE 51.2 U/L (0-50); ALBUMIN 3.4 g/dL (3.5-5.0); ALKALINE PHOSPHATASE 142.4 U/L (56-119); BILIRUBIN,TOTAL 1.49 mg/dL (0.2-1.3); BLOOD UREA NITROGEN 19.2 mg/dL (9-20); CALCIUM 8.84 mg/dL (8.4-10.2); CHLORIDE 113.9 mmol/L (98-107); CREATININE 0.56 mg/dL (0.60-1.10); GLUCOSE 318.2 mg/dL (74-106); POTASSIUM 4.01 mmol/L (3.5-5.1); SODIUM 146.1 mmol/L (134.5-145); TOTAL PROTEIN 5.96 g/dL (6.3-8.2)
[2021-04-05] MEDS ORDERED: DUONEB NEB PRN (08:38)
[2021-04-05] MEDS: LOVENOX SUBCUT SCH (09:21)
[2021-04-05] MEDS: PROTONIX IV IVP SCH (10:45)
--- NOTE | 2021-04-05 13:18 | PCM.DC ---
Final Diagnosis: Acute metabolic encephalopathy due to hypoglycemia. Pneumonitis, minor, resolved. Elevated troponin, minor, resolving. Date of Admit - 04/02/2021 Date of Transfer to [place], [place] 04/05/21 Physical Exam Appearance: Thin and Other (Comatose) Ill-appearing: None Pain Distress: None Eyes: MACIE and Other (gaze not directed, random eye movement) ENT: Oropharynx normal Neck: Supple Respiratory: Airway patent and Breath sounds clear Cardiovascular: RRR and Pulses normal Musculoskeletal: Other (Limited exam, patient comatose) Skin: Warm and Dry Neurological: Unresponsive (Patient will sometimes gaze towards someone speaking to him, does respond somewhat to deep painful stimuli, no posturing.) Psychiatric: Not Examined (1) Acute metabolic encephalopathy due to hypoglycemia: Status: Acute Code(s): G93.41 - Metabolic encephalopathy; E16.2 - Hypoglycemia, unspecified SNOMED Code(s): 79292662 (2) Pneumonia: Status: Acute Code(s): J18.9 - Pneumonia, unspecified organism SNOMED Code(s): 982048446 (3) Elevated troponin: Status: Acute Code(s): R77.8 - Other specified abnormalities of plasma proteins SNOMED Code(s): 882891183 (4) Diabetes mellitus, type II, insulin dependent: Status: Acute Code(s): E11.9 - Type 2 diabetes mellitus without complications; Z79.4 - longterm (current) use of insulin SNOMED Code(s): 453304070 Reason for Hospitalization: Admitted with a diabetic coma due to prolonged hypoglycemia while asleep. Prognosis/Condition at Discharge: Guarded. Medications at Discharge: Ambulatory Orders Medication Instructions Recorded nitroglycerin 0.4 mg sublingual 0.4 mg SUBLINGUAL Q5MIN X 3 DOSES 12/27/12 tablet (Nitrostat) PRN losartan 50 mg tablet 50 mg PO BID 05/31/13 aspirin 81 mg chewable tablet 81 mg PO DAILY 04/02/21 atorvastatin 80 mg tablet 80 mg PO BEDTIME 04/02/21 copper 2 mg tablet 2 mg PO BID 04/02/21 ferrous sulfate 325 mg (65 mg 325 mg PO TID 04/02/21 iron) tablet isosorbide mononitrate 60 mg 60 mg PO DAILY 04/02/21 tablet,extended release 24 hr naproxen sodium 220 mg capsule 440 mg PO BEDTIME 04/02/21 (Aleve) ranolazine 500 mg tablet,extended 500 mg PO BID 04/02/21 release,12 hr Lab/Diagnostics: Laboratory Tests 04/02/21 04/02/21 04/02/21 05:45 05:45 05:50 WBC RBC Hgb Hct MCV MCH MCHC RDW Coeff of Band[place] Plt Count Immature Gran % (Auto) Neut % (Auto) Lymph % (Auto) [place] % (Auto) Eos % (Auto) Baso % (Auto) Neut # (Auto) Lymph # (Auto) [place] # (Auto) Eos # (Auto) Baso # (Auto) Immature Gran # (Auto) PT INR Puncture Site Base Excess O2 Saturation ABG pH ABG pCO2 ABG pO2 ABG HCO3 ABG Total CO2 Gio Test Hemoglobin Oxyhemoglobin Carboxyhemoglobin Total Hemoglobin O2 Delivery Device Oxygen Liter Flow Sodium Potassium Chloride Carbon Dioxide Anion Gap BUN Creatinine Estimated GFR (MDRD) BUN/Creatinine Ratio Glucose Lactic Acid Calcium Total Bilirubin AST ALT Alkaline Phosphatase Ammonia Troponin I Total Protein Albumin Globulin Albumin/Globulin Ratio Procalcitonin 0.25 H Urine Color Yellow Urine Clarity Clear Urine pH 6.5 Ur Specific Theodore 1.020 Urine Protein Negative Urine Glucose (UA) 2+ H Urine Ketones Negative Urine Blood Negative Urine Nitrite Negative Urine Bilirubin Negative Urine Urobilinogen 0.2 Ur Leukocyte Esterase Negative Urine Opiates Screen Negative Ur Oxycodone Screen Positive H Urine Methadone Screen Negative Ur Propoxyphene Screen Negative Ur Barbiturates Screen Negative U Tricyclic Antidepress Negative Ur Phencyclidine Scrn Negative Ur Amphetamine Screen Negative U Methamphetamines Scrn Negative U Benzodiazepines Scrn Positive H Urine Cocaine Screen Negative U Cannabinoids Screen Negative SARS CoV-2 RNA Rapid KARRIE 04/02/21 04/02/21 04/02/21 05:53 05:53 05:55 WBC 17.81 H D RBC 3.64 L Hgb 12.0 L Hct 34.8 L MCV 95.6 H MCH 33.0 H MCHC 34.5 RDW Coeff of Bandar 13.5 Plt Count 251 Immature Gran % (Auto) 1.0 Neut % (Auto) 87.8 H Lymph % (Auto) 4.5 L [place] % (Auto) 6.5 Eos % (Auto) 0.0 Baso % (Auto) 0.2 Neut # (Auto) 15.6 H Lymph # (Auto) 0.8 [place] # (Auto) 1.2 Eos # (Auto) 0.0 Baso # (Auto) 0.0 Immature Gran # (Auto) 0.2 PT INR Puncture Site Base Excess O2 Saturation ABG pH ABG pCO2 ABG pO2 ABG HCO3 ABG Total CO2 Gio Test Hemoglobin Oxyhemoglobin Carboxyhemoglobin Total Hemoglobin O2 Delivery Device Oxygen Liter Flow Sodium 140.3 Potassium 3.25 L Chloride 107.0 Carbon Dioxide 26.9 Anion Gap 9.65 BUN 31.2 H Creatinine 0.68 Estimated GFR (MDRD) 115.00 BUN/Creatinine Ratio 45.88 Glucose 166.8 H Lactic Acid Calcium 8.75 Total Bilirubin 0.84 AST 56.1 ALT 84.1 H Alkaline Phosphatase 144.9 H D Ammonia Troponin I 0.372 H Total Protein 5.98 L Albumin 3.58 Globulin 2.40 Albumin/Globulin Ratio 1.49 Procalcitonin Urine Color Urine Clarity Urine pH Ur Specific Theodore Urine Protein Urine Glucose (UA) Urine Ketones Urine Blood Urine Nitrite Urine Bilirubin Urine Urobilinogen Ur Leukocyte Esterase Urine Opiates Screen Ur Oxycodone Screen Urine Methadone Screen Ur Propoxyphene Screen Ur Barbiturates Screen U Tricyclic Antidepress Ur Phencyclidine Scrn Ur Amphetamine Screen U Methamphetamines Scrn U Benzodiazepines Scrn Urine Cocaine Screen U Cannabinoids Screen SARS CoV-2 RNA Rapid KARRIE 04/02/21 04/02/21 04/02/21 07:25 08:22 09:32 WBC RBC Hgb Hct MCV MCH MCHC RDW Coeff of Bandar Plt Count Immature Gran % (Auto) Neut % (Auto) Lymph % (Auto) [place] % (Auto) Eos % (Auto) Baso % (Auto) Neut # (Auto) Lymph # (Auto) [place] # (Auto) Eos # (Auto) Baso # (Auto) Immature Gran # (Auto) PT INR Puncture Site Rrad Base Excess 2.7 O2 Saturation 97.0 ABG pH 7.41 ABG pCO2 43.0 ABG pO2 90.0 ABG HCO3 27.3 ABG Total CO2 28.6 H Gio Test Pos Hemoglobin 1.0 Oxyhemoglobin 95.4 Carboxyhemoglobin 1.2 Total Hemoglobin 11.8 O2 Delivery Device Cannula Oxygen Liter Flow 2.00 Sodium Potassium Chloride Carbon Dioxide Anion Gap BUN Creatinine Estimated GFR (MDRD) BUN/Creatinine Ratio Glucose Lactic Acid 3.05 H Calcium Total Bilirubin AST ALT Alkaline Phosphatase Ammonia Troponin I Total Protein Albumin Globulin Albumin/Globulin Ratio Procalcitonin Urine Color Urine Clarity Urine pH Ur Specific Theodore Urine Protein Urine Glucose (UA) Urine Ketones Urine Blood Urine Nitrite Urine Bilirubin Urine Urobilinogen Ur Leukocyte Esterase Urine Opiates Screen Ur Oxycodone Screen Urine Methadone Screen Ur Propoxyphene Screen Ur Barbiturates Screen U Tricyclic Antidepress Ur Phencyclidine Scrn Ur Amphetamine Screen U Methamphetamines Scrn U Benzodiazepines Scrn Urine Cocaine Screen U Cannabinoids Screen SARS CoV-2 RNA Rapid KARRIE Negative 04/02/21 04/03/21 04/03/21 21:18 05:30 05:30 WBC 15.17 H RBC 3.94 L Hgb 13.0 L Hct 36.9 L MCV 93.7 MCH 33.0 H MCHC 35.2 RDW Coeff of Bandar 13.8 Plt Count 233 Immature Gran % (Auto) 0.5 Neut % (Auto) 84.5 H Lymph % (Auto) 6.5 L [place] % (Auto) 7.6 Eos % (Auto) 0.6 Baso % (Auto) 0.3 Neut # (Auto) 12.8 H Lymph # (Auto) 1.0 [place] # (Auto) 1.2 Eos # (Auto) 0.1 Baso # (Auto) 0.1 Immature Gran # (Auto) 0.1 PT INR Puncture Site Base Excess O2 Saturation ABG pH ABG pCO2 ABG pO2 ABG HCO3 ABG Total CO2 Gio Test Hemoglobin Oxyhemoglobin Carboxyhemoglobin Total Hemoglobin O2 Delivery Device Oxygen Liter Flow Sodium 138.2 Potassium 4.69 Chloride 109.7 H Carbon Dioxide 23.9 Anion Gap 9.29 BUN 23.1 H Creatinine 0.59 L Estimated GFR (MDRD) 135.00 BUN/Creatinine Ratio 39.15 Glucose 320.2 H D Lactic Acid Calcium 9.22 Total Bilirubin 1.32 H AST 59.1 H ALT 79.5 H Alkaline Phosphatase 162.4 H Ammonia Troponin I 0.644 H* 0.460 H Total Protein 6.32 Albumin 3.66 Globulin 2.66 Albumin/Globulin Ratio 1.37 Procalcitonin Urine Color Urine Clarity Urine pH Ur Specific Theodore Urine Protein Urine Glucose (UA) Urine Ketones Urine Blood Urine Nitrite Urine Bilirubin Urine Urobilinogen Ur Leukocyte Esterase Urine Opiates Screen Ur Oxycodone Screen Urine Methadone Screen Ur Propoxyphene Screen Ur Barbiturates Screen U Tricyclic Antidepress Ur Phencyclidine Scrn Ur Amphetamine Screen U Methamphetamines Scrn U Benzodiazepines Scrn Urine Cocaine Screen U Cannabinoids Screen SARS CoV-2 RNA Rapid KARRIE 04/03/21 04/03/21 04/03/21 05:30 11:11 17:00 WBC RBC Hgb Hct MCV MCH MCHC RDW Coeff of Bandar Plt Count Immature Gran % (Auto) Neut % (Auto) Lymph % (Auto) [place] % (Auto) Eos % (Auto) Baso % (Auto) Neut # (Auto) Lymph # (Auto) [place] # (Auto) Eos # (Auto) Baso # (Auto) Immature Gran # (Auto) PT 11.9 H INR 1.15 Puncture Site Base Excess O2 Saturation ABG pH ABG pCO2 ABG pO2 ABG HCO3 ABG Total CO2 Gio Test Hemoglobin Oxyhemoglobin Carboxyhemoglobin Total Hemoglobin O2 Delivery Device Oxygen Liter Flow Sodium Potassium Chloride Carbon Dioxide Anion Gap BUN Creatinine Estimated GFR (MDRD) BUN/Creatinine Ratio Glucose Lactic Acid Calcium Total Bilirubin AST ALT Alkaline Phosphatase Ammonia < 8.7 L Troponin I Total Protein Albumin Globulin Albumin/Globulin Ratio Procalcitonin Urine Color Urine Clarity Urine pH Ur Specific Theodore Urine Protein Urine Glucose (UA) Urine Ketones Urine Blood Urine Nitrite Urine Bilirubin Urine Urobilinogen Ur Leukocyte Esterase Urine Opiates Screen Negative Ur Oxycodone Screen Negative Urine Methadone Screen Negative Ur Propoxyphene Screen Negative Ur Barbiturates Screen Negative U Tricyclic Antidepress Negative Ur Phencyclidine Scrn Negative Ur Amphetamine Screen Negative U Methamphetamines Scrn Negative U Benzodiazepines Scrn Negative Urine Cocaine Screen Negative U Cannabinoids Screen Negative SARS CoV-2 RNA Rapid KARRIE 04/04/21 04/04/21 04/04/21 04:50 04:50 04:50 WBC 11.94 H RBC 3.80 L Hgb 12.4 L Hct 36.5 L MCV 96.1 H MCH 32.6 H MCHC 34.0 RDW Coeff of Bandar 14.0 Plt Count 179 Immature Gran % (Auto) 0.7 Neut % (Auto) 85.8 H Lymph % (Auto) 5.9 L [place] % (Auto) 7.3 Eos % (Auto) 0.0 Baso % (Auto) 0.3 Neut # (Auto) 10.3 H Lymph # (Auto) 0.7 [place] # (Auto) 0.9 Eos # (Auto) 0.0 Baso # (Auto) 0.0 Immature Gran # (Auto) 0.1 PT 11.4 H INR 1.11 Puncture Site Base Excess O2 Saturation ABG pH ABG pCO2 ABG pO2 ABG HCO3 ABG Total CO2 Gio Test Hemoglobin Oxyhemoglobin Carboxyhemoglobin Total Hemoglobin O2 Delivery Device Oxygen Liter Flow Sodium 144.0 Potassium 4.74 Chloride 112.3 H Carbon Dioxide 21.9 L Anion Gap 14.54 BUN 18.9 Creatinine 0.57 L Estimated GFR (MDRD) 141.00 BUN/Creatinine Ratio 33.15 Glucose 322.7 H Lactic Acid Calcium 9.28 Total Bilirubin 1.74 H AST 44.2 ALT 64.2 H Alkaline Phosphatase 174.3 H Ammonia Troponin I Total Protein 6.43 Albumin 3.78 Globulin 2.65 Albumin/Globulin Ratio 1.42 Procalcitonin Urine Color Urine Clarity Urine pH Ur Specific Theodore Urine Protein Urine Glucose (UA) Urine Ketones Urine Blood Urine Nitrite Urine Bilirubin Urine Urobilinogen Ur Leukocyte Esterase Urine Opiates Screen Ur Oxycodone Screen Urine Methadone Screen Ur Propoxyphene Screen Ur Barbiturates Screen U Tricyclic Antidepress Ur Phencyclidine Scrn Ur Amphetamine Screen U Methamphetamines Scrn U Benzodiazepines Scrn Urine Cocaine Screen U Cannabinoids Screen SARS CoV-2 RNA Rapid KARRIE 04/04/21 04/05/21 04/05/21 04:50 05:22 05:22 WBC 10.20 RBC 3.77 L Hgb 12.4 L Hct 36.6 L MCV 97.1 H MCH 32.9 H MCHC 33.9 RDW Coeff of Bandar 13.6 Plt Count 162 Immature Gran % (Auto) 0.7 Neut % (Auto) 85.5 H Lymph % (Auto) 5.9 L [place] % (Auto) 7.7 Eos % (Auto) 0.0 Baso % (Auto) 0.2 Neut # (Auto) 8.7 H Lymph # (Auto) 0.6 [place] # (Auto) 0.8 Eos # (Auto) 0.0 Baso # (Auto) 0.0 Immature Gran # (Auto) 0.1 PT INR Puncture Site Base Excess O2 Saturation ABG pH ABG pCO2 ABG pO2 ABG HCO3 ABG Total CO2 Gio Test Hemoglobin Oxyhemoglobin Carboxyhemoglobin Total Hemoglobin O2 Delivery Device Oxygen Liter Flow Sodium 146.1 H Potassium 4.01 Chloride 113.9 H Carbon Dioxide 28.0 Anion Gap 8.21 BUN 19.2 Creatinine 0.56 L Estimated GFR (MDRD) 143.00 BUN/Creatinine Ratio 34.28 Glucose 318.2 H Lactic Acid Calcium 8.84 Total Bilirubin 1.49 H AST 33.0 ALT 51.2 H Alkaline Phosphatase 142.4 H D Ammonia Troponin I 0.306 H Total Protein 5.96 L Albumin 3.40 L Globulin 2.56 Albumin/Globulin Ratio 1.32 Procalcitonin Urine Color Urine Clarity Urine pH Ur Specific Theodore Urine Protein Urine Glucose (UA) Urine Ketones Urine Blood Urine Nitrite Urine Bilirubin Urine Urobilinogen Ur Leukocyte Esterase Urine Opiates Screen Ur Oxycodone Screen Urine Methadone Screen Ur Propoxyphene Screen Ur Barbiturates Screen U Tricyclic Antidepress Ur Phencyclidine Scrn Ur Amphetamine Screen U Methamphetamines Scrn U Benzodiazepines Scrn Urine Cocaine Screen U Cannabinoids Screen SARS CoV-2 RNA Rapid KARRIE Brain MRI: MPRESSION: No acute intracranial abnormality. Mild chronic microvascular ischemic white matter changes. Chronic lacunar infarct in the left lentiform nucleus and small chronic right cerebellar infarct. Chest X-ray: FINDINGS: Cardiac and mediastinal contours are normal. Pulmonary vasculature is normal. Lungs are clear. Prior mediastinotomy. No acute chest wall abnormality. IMPRESSION: No acute cardiopulmonary disease CT abdomen/pelvis without contrast: IMPRESSION: 1. Limited examination due to lack of intravenous contrast in combination with motion artifact. 2. Bilateral dependent atelectasis and/or pneumonitis. No pulmonary consolidation, effusion or pneumothorax. 3. No urinary or bowel obstruction. 4. Gallbladder not well visualized. 5. No acute inflammatory process identified within the abdomen or pelvis. 6. Penile implant place. Follow-ups: Transfer to [facility] in [place], [place] for a direct admit to the hospitalist, Dr. Flowers. Discharge Disposition: Transfer Hospital Course: 70 y/o male admitted with an insulin reaction with significant hypoglycemia for probably several hours (onset when asleep at night). Arrived to ER with blood sugar in the low 50's and a comatose state, even with correction of the hypoglycemia. Only other acute finding was a mild, borderline pneumonitis. Since admission, there has been some slight improvement in the comatose state. He will sometimes look at his when she speaks to him, though he does not verbalize. He does localize somewhat to painful stimuli. There are more spontaneous, but not purposeful, movements. Brain MRI normal. The mild pneumonitis (and elevated WBC count) resolved. There was a slight increase in troponin, with no EKG changes. Troponin is coming down. Patient has been maintained with IV fluids, rebolledo catheter, and lovenox. Blood sugar elevated, treat with sliding scale insulin. Discussion with family about placing NG tube for some feedings. Arrangements made with a larger hospital with more resources to transfer the patient via EMS, stable. Code status is DNI, would like CPR performed if indicated. Plan: Transfer to [place], [place].
[2021-04-05 14:37] VITALS: BP 156/79; TEMP 98.6
== END 2021-04-05 14:45 | disposition short-term general hospital (02) | DRG 70 ==
LOC: ED 05:12 → MEDSURG A 14:17
PROVIDERS: ADMIT Emergency Medicine; ATTEND Emergency Medicine
DX: J18.9 Pneumonia, unspecified organism; Z51.81 Encounter for therapeutic drug level monitoring; R77.8 Other specified abnormalities of plasma proteins; E16.2 Hypoglycemia, unspecified; R53.1 Weakness; Z20.822 Contact with and (suspected) exposure to COVID-19; Z79.4 Long term (current) use of insulin; E11.9 Type 2 diabetes mellitus without complications; G93.41 Metabolic encephalopathy; Z79.899 Other long term (current) drug therapy